=== PATIENT | female | born 1965 | race Caucasian/White ===

== ENCOUNTER 2021-01-12 09:56 | Outpatient (CLI) | payer MEDICARE, MEDICAID, SELFPAY ==
--- NOTE | ~2021-01-12 | CT_ITS ---
EXAMINATION: CT abdomen pelvis wo/w con EXAM DATE: 01/12/2021 11:06 INDICATION: Gross hematuria. TECHNIQUE: Spiral CT of the abdomen and pelvis was performed without contrast. The patient was then injected with small bolus intravenous Omnipaque 350, followed by delay of approximately 10 minutes to allow collecting system to opacify. A post contrast scan abdomen and pelvis was performed during inj ection of remaining contrast. A total of 130 cc intravenous contrast was administered. The dose-daniel th product (DLP) for this examination was 412.28 mGy-cm. The exposure was tailored according to josé ent size (auto mA exposure control), and iterative reconstruction (ASIR) was used as additional dose reduction technique. Comparison is made to prior examination from 09/07/2019. FINDINGS: There is no hydronephrosis or nephrolithiasis. There is a left renal peripelvic hemorrhagi c cyst measuring 8 mm. There is a cyst in the lower pole of the left kidney with septation measuring 2.4 cm. The kidneys enhance symmetrically. There are no suspicious renal lesions. There is duplicat ed right renal collecting system with 2 ureters confirmed to the pelvic inlet, they may merge at that point. The calyces and opacified portions of ureters are unremarkable, without filling defects or f ocal suspicious strictures. The bladder is unremarkable. The uterus is not identified and has likel y been surgically resected. Scattered small liver cysts. Splenic granulomata. Adrenal glands and pancreas unremarkable. There ar e cholecystectomy clips. There is no retroperitoneal or pelvic lymphadenopathy. There is mild scat tered arteriosclerotic disease. There is mild colonic diverticulosis. There is no adjacent inflamma tory change to suggest diverticulitis. The appendix is normal. The stomach and small bowel are unremarkable. There is expected amount of c olonic stool. No free intraperitoneal gas. The heart is normal in size. There are no pericardial or pleural effusions. The lung bases are unremarkable. There are no osteoblastic or osteolytic les ions identified. IMPRESSION: 1. Partially duplicated right renal collecting system. 2. Sigmoid diverticulosis. Reviewed, dictated and finalized at location B.
--- NOTE | ~2021-01-12 | XR_ITS ---
EXAMINATION: XR abdomen/kub 1V EXAM DATE: 01/12/2021 10:38 INDICATION: Gross hematuria. TECHNIQUE: Frontal projection of the upper abdomen, frontal projection lower abdomen/pelvis for inter pretation. Comparison is made to prior examination from 09/02/2019. FINDINGS: There is expected amount of colonic stool and gas. No small bowel dilation, nonobstructiv e bowel gas pattern. Calcifications in the pelvis are believed to be phleboliths. There is no orga nomegaly suspected. The bones are unremarkable. There are cholecystectomy clips. IMPRESSION: Unremarkable abdomen x-ray exam. Reviewed, dictated and finalized at location B.
== END 2021-01-12 09:57 | disposition home or self-care (01) ==
PROVIDERS: PCP Physician Assistant; Visit Provider Nurse Practitioner Adult Health
DX: R31.0 Gross hematuria (principal); K57.30 Diverticulosis of large intestine without perforation or abscess without bleeding; Q64.8 Other specified congenital malformations of urinary system
CPT/HCPCS: 74018; 74178; Q9967

== ENCOUNTER 2021-11-15 11:37 | Outpatient (CLI) | payer MEDICARE, MEDICAID, SELFPAY ==
[2021-11-15 12:58] LABS: Rheumatoid Factor < 12.0 IU/ML (<12)
== END 2021-11-15 11:38 | disposition home or self-care (01) ==
LOC: ANHLAB 11:44
PROVIDERS: PCP Physician Assistant; Visit Provider Physician Assistant
DX: M25.50 Pain in unspecified joint (principal)
CPT/HCPCS: 36415; 86430

== ENCOUNTER 2022-03-14 14:21 | Outpatient (CLI) | payer MEDICARE, MEDICAID, SELFPAY ==
--- NOTE | ~2022-03-14 | XR_ITS ---
XR shoulder LT min 2V 03/14/2022 16:02 Indication: Left shoulder pain Procedure: 2 views left shoulder Comparison: No prior studies for comparison. Findings: No fracture, subluxation or dislocation. No significant soft tissue abnormality. No foreign bodies. There is anatomic alignment. Impression: 1: No significant bone or joint abnormality. Reviewed, dictated and finalized at location A. Impression: 1: No significant bone or joint abnormality.
--- NOTE | ~2022-03-14 | XR_ITS ---
XR knee RT 2V 03/14/2022 16:01 Indication: Right knee pain Procedure: 3 views right knee Comparison: No prior studies for comparison. Findings: No fracture, subluxation or dislocation. There is anatomic alignment. No significant joint space narrowing. No joint effusion. No focal soft tissue abnormality. No foreign bodies. Impression: 1: No significant bone or joint abnormality. Reviewed, dictated and finalized at location A. Impression: 1: No significant bone or joint abnormality.
--- NOTE | ~2022-03-14 | XR_ITS ---
XR knee LT 2V 03/14/2022 16:01 Indication: Polyarticular joint pain Procedure: 2 views left knee Comparison: No prior studies for comparison. Findings: There is anatomic alignment. No fracture or traumatic malalignment. No significant joint ef fusion. No foreign bodies. No significant joint space narrowing. Impression: 1: No significant bone or joint abnormality. Reviewed, dictated and finalized at location A. Impression: 1: No significant bone or joint abnormality.
--- NOTE | ~2022-03-14 | XR_ITS ---
XR elbow RT 2V DATE: 03/14/2022 16:01 INDICATION: Elbow pain. TECHNIQUE: AP and lateral views COMPARISON: 11/03/2015 MRI right elbow 10/10/2015 right elbow FINDINGS: Slight dorsal olecranon process spur. No fracture or dislocation or joint effusion. IMPRESSION: Slight dorsal olecranon spur Reviewed, dictated and finalized at location A.
--- NOTE | ~2022-03-14 | XR_ITS ---
XR ankle LT 2V DATE: 03/14/2022 16:01 INDICATION: Left ankle pain TECHNIQUE: AP and lateral views COMPARISON: 04/19/2013 left ankle FINDINGS: No fracture or dislocation of the ankle or disruption of the ankle mortise. No periosteal r eaction or bone destruction. Posterior calcaneal enthesopathy. IMPRESSION: Posterior plantar calcaneal enthesopathy Reviewed, dictated and finalized at location A.
--- NOTE | ~2022-03-14 | XR_ITS ---
XR hand BI arthritis min 3V DATE: 03/14/2022 16:02 INDICATION: Bilateral hand pain TECHNIQUE: 4 views of each hand COMPARISON: None FINDINGS: There is osteoarthritic change primarily the distal interphalangeal joints, right greater t thomas left. No fracture or dislocation, periosteal reaction or bone destruction, erosive change or chondrocalcino sis. IMPRESSION: Osteoarthritic change involving primarily the distal interphalangeal joints, right greate r than left Reviewed, dictated and finalized at location A. IMPRESSION: Osteoarthritic change involving primarily the distal interphalangea l joints, right greater than left
--- NOTE | ~2022-03-14 | XR_ITS ---
XR wrist RT 2V DATE: 03/14/2022 16:01 INDICATION: Right wrist pain TECHNIQUE: AP and lateral views COMPARISON: None FINDINGS: No fracture or dislocation, periosteal reaction or bone destruction. Joint spaces are prese rved. No erosive change or chondrocalcinosis. IMPRESSION: No significant abnormality Reviewed, dictated and finalized at location A. IMPRESSION: No significant abnormality
--- NOTE | ~2022-03-14 | XR_ITS ---
XR ankle RT 2V DATE: 03/14/2022 16:01 INDICATION: Right ankle pain TECHNIQUE: AP and lateral views COMPARISON: None FINDINGS: There is mild posterior calcaneal enthesopathy. No fracture or dislocation of the ankle or disruption of the ankle mortise. No periosteal reaction or bone destruction. IMPRESSION: Mild posterior calcaneal enthesopathy Reviewed, dictated and finalized at location A.
--- NOTE | ~2022-03-14 | XR_ITS ---
XR foot LT 2V DATE: 03/14/2022 16:01 INDICATION: Left foot pain TECHNIQUE: AP and lateral views COMPARISON: None FINDINGS: Mild posterior calcaneal enthesopathy. No fracture or dislocation, periosteal reaction or bone destruction. IMPRESSION: Mild posterior calcaneal enthesopathy Reviewed, dictated and finalized at location A.
--- NOTE | ~2022-03-14 | XR_ITS ---
XR wrist LT 2V DATE: 03/14/2022 16:01 INDICATION: Left wrist pain TECHNIQUE: AP and lateral views COMPARISON: None FINDINGS: No fracture, dislocation, periosteal reaction or bone destruction, erosive change or chondr ocalcinosis. IMPRESSION: No significant abnormality Reviewed, dictated and finalized at location A. IMPRESSION: No significant abnormality
--- NOTE | ~2022-03-14 | XR_ITS ---
XR hip BI wo pelvis DATE: 03/14/2022 16:01 INDICATION: Bilateral hip pain TECHNIQUE: AP and lateral views of each hip COMPARISON: None FINDINGS: No fracture or dislocation, avascular necrosis or bone destruction. Minimal spurring of the left femoral head consistent with mild left hip osteoarthritis. The pubic symphysis and sacral iliac joints are intact. IMPRESSION: Mild left hip osteoarthritis Reviewed, dictated and finalized at location A.
--- NOTE | ~2022-03-14 | XR_ITS ---
XR shoulder RT min 2V 03/14/2022 16:01 Indication: Right shoulder pain Procedure: 2 views right shoulder Comparison: No prior studies for comparison. Findings: There is mild glenohumeral joint osteoarthritis. No fracture or traumatic malalignment. No soft tissue abnormality. No foreign body. Impression: 1: Mild glenohumeral joint osteoarthritis. Reviewed, dictated and finalized at location A. Impression: 1: Mild glenohumeral joint osteoarthritis.
--- NOTE | ~2022-03-14 | XR_ITS ---
XR elbow LT 2V DATE: 03/14/2022 16:01 INDICATION: Pain TECHNIQUE: AP and lateral views COMPARISON: None FINDINGS: Dorsal olecranon spur. No fracture or dislocation, periosteal reaction or bone destruction. No elbow joint effusion. IMPRESSION: Dorsal olecranon spur Reviewed, dictated and finalized at location A. IMPRESSION: Dorsal olecranon spur
--- NOTE | ~2022-03-14 | XR_ITS ---
XR foot RT 2V DATE: 03/14/2022 16:01 INDICATION: Pain TECHNIQUE: AP and lateral views COMPARISON: None FINDINGS: Mild posterior calcaneal enthesopathy. Osteopenia. No fracture or dislocation, periosteal reaction or bone destruction. IMPRESSION: Mild posterior calcaneal enthesopathy Reviewed, dictated and finalized at location A.
[2022-03-14 15:36] LABS: Hemoglobin 13.2 g/dL (12.0-15.0); Mean Corpuscular Hemoglobin 31.9 pg (26-34); Mean Corpuscular Volume 96.6 fl (80-100); Mean Platelet Volume 12.9 fl (7.4-10.4); Platelet Count Result 123 k/mm3 (150-375); Red Blood Count 4.14 M/mm3 (4.2-5.4)
[2022-03-14 16:16] LABS: Erythrocyte Sedimentation Rate 13 mm/hr (0-20)
[2022-03-14 18:12] LABS: Hemoglobin A1C 5.2 % (<5.7)
[2022-03-14 18:27] LABS: Alanine Aminotransferase 12 U/L (6-35); Albumin Level 4.1 g/dL (3.5-5.1); Alkaline Phosphatase 77 U/L (38-126); Anion Gap 5 mmol/L (8-16); Aspartate Amino Transferase 26 U/L (14-36); Bilirubin,Total 0.4 mg/dL (0.2-1.3); Blood Urea Nitrogen 9 mg/dL (7-17); CRP < 0.5 mg/dL (<1.0); Calcium 8.8 mg/dL (8.4-10.2); Carbon Dioxide 27 mmol/L (22-30); Chloride 105 mmol/L (98-107); Creatine Kinase 108 U/L (30-135); Estimated Glomerular Filt Rate > 60; Glucose 85 mg/dL (65-110); Magnesium 1.8 mg/dL (1.6-2.3); Potassium 3.9 mmol/L (3.4-5.0); Sodium 137 mmol/L (137-145); Uric Acid 3.2 mg/dL (2.5-7.5)
[2022-03-14 18:33] LABS: Free T4 Free Thyroxine 1.39 ng/mL (0.78-2.19); Vitamin D 25 Hydroxy 57.2 ng/mL
[2022-03-14 18:47] LABS: Thyroid Stimulating Hormone 0.467 uIU/mL (0.465-4.680)
[2022-03-17 23:24] LABS: Alpha 1 Globulin 0.3 g/dL (0.2-0.3); Alpha 2 Globulin 0.6 g/dL (0.5-0.9); Beta 1 Globulin 0.4 g/dL (0.4-0.6); Gamma Globulin 1.1 g/dL (0.8-1.7); Protein, Total 6.7 g/dL (6.1-8.1)
[2022-03-18 00:40] LABS: Total Protein/Creatinine Ratio 111 mg/g creat (21-161)
[2022-03-19 15:35] LABS: Vitamin B1 8 nmol/L (8-30)
[2022-03-20 11:50] LABS: Anti Nuclear Antibody Pattern Nuclear, Speckled; Anti Nuclear Antibody Titer 1:40 (Negative)
[2022-03-21 12:57] LABS: Vitamin B6 7.7 ng/mL (2.1-21.7)
== END 2022-03-14 14:22 | disposition home or self-care (01) ==
PROVIDERS: PCP Physician Assistant; Visit Provider Internal Medicine Rheumatology
DX: G62.9 Polyneuropathy, unspecified (principal); R53.83 Other fatigue; M19.90 Unspecified osteoarthritis, unspecified site; M79.10 Myalgia, unspecified site; R73.09 Other abnormal glucose; E55.9 Vitamin D deficiency, unspecified; E53.8 Deficiency of other specified B group vitamins; D50.9 Iron deficiency anemia, unspecified; Z79.899 Other long term (current) drug therapy; M16.12 Unilateral primary osteoarthritis, left hip; M77.32 Calcaneal spur, left foot; M77.31 Calcaneal spur, right foot; M19.041 Primary osteoarthritis, right hand; M19.042 Primary osteoarthritis, left hand; M19.011 Primary osteoarthritis, right shoulder
CPT/HCPCS: 36415; 73030; 73070; 73100; 73130; 73521; 73560; 73600; 73620; 80053; 82306; 82550; 82570; 82607; 82728; 82746; 83036; 83520; 83735; 84155; 84156; 84165; 84166; 84207; 84425; 84439; 84443; 84550; 85027; 85652; 86038; 86039; 86140; 86334; 86335

== ENCOUNTER 2022-05-08 07:59 | Outpatient (CLI) | payer MEDICARE, MEDICAID, SELFPAY ==
--- NOTE | ~2022-05-08 | US_ITS ---
EXAMINATION: US abdomen complete DATE: 05/08/2022 09:28 INDICATION: Chronic pancreatitis. Thrombocytopenia. TECHNIQUE: Multiple grayscale and Doppler ultrasound images of the abdomen were obtained. COMPARISON: CT abdomen and pelvis 01/12/2021 FINDINGS: Abdominal aorta is normal in caliber. There is mild aortic atherosclerosis. Inferior vena c keaton is normal. The visualized portions of the head, body, and tail of the pancreas are normal. There is a cyst in the liver measuring up to 1.5 cm. There is normal flow in main portal vein. The gallblad omid is absent. The common duct is normal and measures 8 mm. The spleen is normal in size. Calcificati ons in the spleen are consistent with old granulomatous disease. The kidneys are normal in size. Ther e is a 2.1 cm cyst in left kidney. IMPRESSION: 1. Normal pancreas. 2. Normal spleen size. Reviewed, dictated and finalized at location A.
== END 2022-05-08 08:00 | disposition home or self-care (01) ==
PROVIDERS: PCP Physician Assistant; Visit Provider Internal Medicine
DX: K86.1 Other chronic pancreatitis (principal); D69.6 Thrombocytopenia, unspecified
CPT/HCPCS: 76700

== ENCOUNTER 2022-07-02 14:33 | Outpatient (CLI) | payer MEDICARE, MEDICAID, SELFPAY ==
[2022-07-08 09:40] LABS: Scleroderma 70 Antibody <1.0
[2022-07-08 11:06] LABS: RNP Antibodies <1.0; SS-A <1.0; SS-B <1.0
== END 2022-07-02 14:34 | disposition home or self-care (01) ==
PROVIDERS: PCP Physician Assistant; Visit Provider Internal Medicine Rheumatology
DX: R79.89 Other specified abnormal findings of blood chemistry (principal)
CPT/HCPCS: 36415; 86225; 86235

== ENCOUNTER 2022-11-12 10:31 | Emergency (ER) | payer MEDICARE, MEDICAID, SELFPAY ==
--- NOTE | ~2022-11-12 | CT_ITS ---
EXAMINATION: CT abdomen pelvis w con DATE: 11/12/2022 11:55 INDICATION: Lower abdominal pain TECHNIQUE: Computed tomography (CT) of the abdomen and pelvis was performed with 100 CC Omnipaque 350 intravenous contrast. Automated exposure control and iterative reconstruction technique were employe d. Exam dose: 171.08 mGy-cm total exam DLP. COMPARISON: 05/08/2022 abdominal ultrasound examination 01/12/2021 CT abdomen pelvis without and with IV contrast material FINDINGS: Chronic mild discoid scarring at the base of the left lower lobe. Lung bases are clear of i nfiltrate or consolidation. Normal heart size. No pericardial or pleural effusion. Several hepatic cysts measuring up to approximately 11 mm dimension. Status post cholecystectomy. There is prominence of the common bile duct which measures up to approxi mately 11 mm diameter compared to 6 mm on 01/12/2021. The pancreatic duct is mildly dilated up to 4 mm, increased in diameter since 01/12/2021. No pancreatic mass lesion or calcification is evident. Normal splenic size. Numerous calcified splenic granulomas. Normal morphology of the adrenal glands. Duplicated right kidney. 8 mm upper pole left renal cyst. Pinpoint 5 cm lower pole left renal cyst. No urinary tract calculus or hydroureteronephrosis. The urinary bladder is unremarkable. 4.2 cm left ovarian cystic lesion; pelvic ultrasound examination is recommended. Normal caliber and minimal atherosclerotic calcification of the abdominal aorta. No intraperitoneal o r retroperitoneal or pelvic mass lesion or adenopathy or ascites. Normal appendix. No bowel obstruction or intraperitoneal free air is detected. Very small fat-containing umbilical hernia. No suspicious osteolytic or osteoblastic lesions. IMPRESSION: New 4.2 cm left ovarian cystic lesion since 01/12/2021; pelvic ultrasound correlation is r ecommended Stable hepatic cysts, left renal cysts Duplicated right kidney Status post cholecystectomy; increased caliber of the common bile duct and pancreatic duct since 2020; recommend correlation with serum bilirubin level. Consider MRCP as clinically appropriate. Normal appendix Status post cholecystectomy Status post hysterectomy Reviewed, dictated and finalized at Location A. Reviewed, dictated and finalized at location L. CONDUCTOR ENGINEER IMPRESSION: New 4.2 cm left ovarian cystic lesion since 01/12/2021; pelvic ultra sound correlation is recommended Stable hepatic cysts, left renal cysts Duplicated right kidney Status post cholecystectomy; increased caliber of the common bile duct and panc reatic duct since 01/12/2021; recommend correlation with serum bilirubin level. C onsider MRCP as clinically appropriate. Normal appendix Status post cholecystectomy Status post hysterectomy
--- NOTE | ~2022-11-12 | US_ITS ---
EXAMINATION: US pelvic complete w TV DATE: 11/12/2022 13:23 INDICATION: Ovarian cyst. TECHNIQUE: Multiple transabdominal and transvaginal sonographic images of the pelvis were obtained. COMPARISON: CT abdomen and pelvis 11/12/2022 FINDINGS: The uterus is absent. There is no free fluid in the pelvis. The right ovary is not visualized. The le ft ovary measures 4.9 x 3.4 x 4.6 cm. There is a 4.6 cm cyst in the left ovary with peripheral nodule s of tissue with internal vascular flow. There is vascular flow in the left ovary. IMPRESSION: 1. 4.6 cm cystic mass in the left ovary suspicious for neoplasm. Surgical evaluation is recommended. Reviewed, dictated and finalized at location A. UTER ASSISTANT IMPRESSION: 1. 4.6 cm cystic mass in the left ovary suspicious for neoplasm. Surgical evalu ation is recommended.
[2022-11-12 10:38] VITALS: BP 140/84; PULSE 74; RESP 18; TEMP 37.3; O2SAT 100
--- NOTE | 2022-11-12 10:49 | ECG_ITS ---
Measurements Intervals [place] Rate: 71 P: 95 DE: 160 QRS: 58 QRSD: 64 T: 77 QT: 373 QTc: 407 Interpretive Statements SINUS RHYTHM BASELINE ARTIFACT- I, II, III, AVR, AVL, AVF, V1-V6 NORMAL ECG NO PREVIOUS ECG AVAILABLE FOR COMPARISON Electronically Signed On 11-12-2022 13:10:27 AMERICAN HISTORY TEACHER by Trent Keys D.O.
[2022-11-12 10:50] VITALS: PULSE 76
[2022-11-12] MEDS: ONDANSETRON INJ 4 MG/2 ML VIAL IV PUSH (11:12)
[2022-11-12] MEDS: fentaNYL CITRATE INJ (*CRX) 100 MCG/2 ML VIAL 25 MCG IV PUSH (11:12)
[2022-11-12] MEDS: SODIUM CHLORIDE 0.9% IV 1,000 ML 999 ML IV CONT (11:13)
--- NOTE | 2022-11-12 11:20 | ED.GENADULT ---
HPI - General Adult General Chief complaint: Unspecified Stated complaint: SOB Time Seen by Provider: 11/12/22 10:37 History of Present Illness HPI narrative: Pt presents with complaint of lower abdominal pain for several days. Pt had episode of urinary incontinence yesterday and when she got to [place] she noted mucous in stool with urine. Pt had normal UA last week at urology appointment. Pt also complains of SOB on walking from parking lot to ER. Pt denies CP. Related Data Home Medications Medication Instructions Recorded Confirmed phenytoin sodium extended 100 mg 300 mg PO HS 09/07/19 11/20/21 capsule levetiracetam 500 mg tablet 500 mg PO BID 06/07/20 11/20/21 (Keppra) propranolol 10 mg tablet 10 mg PO BID 06/07/20 11/20/21 estradiol 0.01% (0.1 mg/gram) 1 g vaginal WEEKLY 11/20/21 11/20/21 vaginal cream nitrofurantoin macrocrystal 100 mg 100 mg PO Q12H 11/20/21 11/20/21 capsule Allergies Allergy/AdvReac Type Severity Reaction Status Date / Time morphine Allergy Intermediate Itching Verified 11/12/22 10:44 and encephalopathy levofloxacin AdvReac Mild Diarrhea Verified 11/12/22 10:44 Review of Systems Review of Systems: All systems reviewed & are unremarkable except as noted in HPI and below (hpi) PMFSH Past Medical History Medical History (Updated 11/12/22 @ 14:19 by Diane Brown III, DO) Anxiety Bronchitis Cataracts, bilateral Depression Diverticulitis Epilepsy Fibromyalgia GERD (gastroesophageal reflux disease) HTN (hypertension) Liver disease Pancreatitis UTI (urinary tract infection) Surgical History Surgical History History of hysterectomy History of intestinal surgery She reports cholecystecomy in 2001 and her bile ducts were nicked - her recovery was complicated by 3 months inpatient at [facility] for bile leak. She believes she also had colon resected and reanastomosed at that time - no ostomy. Hx of section Hx of cholecystectomy Hx of rotator cuff surgery lt shoulder Family History Family History Mother Family history of thyroid disease Hypertension Family history of malignant neoplasm of gastrointestinal tract Father Malignant neoplasm of prostate Family history of diabetes mellitus in first degree relative Acute myocardial infarction Other Diabetes mellitus Family history of arthritis Family history of gout Family history of heart disease in male family member before age 55 Family history of lung disease Family history of seizure disorder Social History Social History Smoking packs per day: 0.5 Smoking cigarettes per day: 10.0 Years smoked: 9 Smoking pack-years: 4.50 Smoking status: Former smoker Tobacco type: cigarettes Second hand tobacco smoke exposure: Yes Alcohol intake: never Substance use: never Substance use type: does not use Gender identity (if verbalized by the patient): Female Spiritual care concerns: No Agree to blood products: Yes Exam Const: General: cooperative, no acute distress, alert and anxious Nutritional Appearance: thin Orientation/consciousness: patient oriented x3 Limitations: no limitations Neck: Neck: normal visual inspection and full ROM Thyroid: thyroid normal Cardio: Rate: regular rate Rhythm: regular rhythm Peripheral pulses: Peripheral pulses 2+ throughout GI: Inspection: normal to inspection GI Palp: Yes abdominal tenderness (low abdomen) Auscultation: normal bowel sounds Skin: General skin exam: normal color and no rashes or lesions noted Neuro: General: patient oriented x3, no meningeal signs, no focal motor deficits and CN's II-XI intact bilaterally Speech: normal speech Extrem: General: normal to inspection, full ROM and no clubbing, cyanosis or edema Psych: Appearance: grossly nor
[2022-11-12 11:30] LABS: Basophils Percent Auto 0.6 % (0.2-1.2); Eosinophils Absolute Auto 0.1 K/mm3 (0-0.3); Eosinophils Percent Auto 1.8 % (0-4.4); Hematocrit 41.5 % (37.0-47.0); Hemoglobin 13.5 g/dL (12.0-15.0); Immature Granulocyte Absolute 0.03 K/mm3 (0.00-0.031); Immature Granulocyte Percent A 0.5 % (0-0.5); Lymphocytes Absolute Auto 1.75 K/mm3 (0.9-3.2); Lymphocytes Percent Auto 26.8 % (18.3-44.2); Mean Corpuscular HGB Conc 32.5 g/dl (32-36); Mean Corpuscular Hemoglobin 31.3 pg (26-34); Mean Corpuscular Volume 96.1 fl (80-100); Mean Platelet Volume 11.6 fl (7.4-10.4); Monocytes Absolute Auto 0.4 K/mm3 (0.1-0.6); Monocytes Percent Auto 6.1 % (2.6-8.5); Neutrophils Absolute Auto 4.2 K/mm3 (1.3-6.7); Neutrophils Percent Auto 64.2 % (45.5-73.1); Platelet Count Result 269 k/mm3 (150-375); Red Blood Count 4.32 M/mm3 (4.2-5.4); Red Cell Distribution Width 13.1 % (11.5-14.5); White Blood Count 6.5 K/mm3 (4.5-10.0)
[2022-11-12 11:34] LABS: Prothrombin Time 12.7 Seconds (11.1-14.7)
[2022-11-12 11:35] LABS: Alanine Aminotransferase 14 U/L (6-35); Albumin Level 4.4 g/dL (3.5-5.1); Alkaline Phosphatase 91 U/L (38-126); Anion Gap 8 mmol/L (8-16); Aspartate Amino Transferase 24 U/L (14-36); Bilirubin,Total 0.5 mg/dL (0.2-1.3); Blood Urea Nitrogen 6 mg/dL (7-17); Calcium 8.9 mg/dL (8.4-10.2); Carbon Dioxide 29 mmol/L (22-30); Chloride 102 mmol/L (98-107); Estimated CRCL calculation 69 ml/min; Estimated Glomerular Filt Rate > 60; Glucose 102 mg/dL (65-110); Lipase 169 U/L (23-300); Partial Thromboplastin Time 31.6 SECONDS (22.3-36.8); Potassium 3.8 mmol/L (3.4-5.0); Sodium 139 mmol/L (137-145)
[2022-11-12 11:36] LABS: Appearance Urine Turbid (Clear); Bacteria Urine 2+ /hpf; Bilirubin Urine Negative (Negative); Blood Urine 2+ (Negative); Color Urine Yellow (Yellow); Glucose Urine UA Negative (Negative); Ketones Urine Negative (Negative); Lactic Acid Reflex 1.8 mmol/L (0.7-2.0); Leukocyte Esterase Ur 3+ LEU/UL (Negative); Nitrate Urine Negative (Negative); Non Pathogenic Casts 0-2; Protein Urine 2+ mg/dL (Negative); RBC Urine 21-50 /hpf (0-2); Squamous Epithelial Cell Urine Many /hpf (Few); Urobilinogen Urine 0.2 mg/dL (<2.0); WBC Urine >100 /hpf; pH Urine 5.5 (5.0-9.0)
[2022-11-12 11:45] LABS: Add Urine Microscopic? YES
[2022-11-12 11:47] LABS: Troponin I < 0.012 ng/mL (0.000-0.034)
[2022-11-12 12:01] VITALS: BP 135/84; PULSE 68; RESP 12; O2SAT 98
[2022-11-12 13:49] VITALS: BP 126/82; PULSE 60; RESP 12; O2SAT 98
[2022-11-12 14:50] VITALS: BP 131/71; PULSE 80; RESP 12; O2SAT 98
== END 2022-11-12 14:53 | disposition home or self-care (01) ==
PROVIDERS: Emergency Provider Emergency Medicine; PCP Physician Assistant
DX: N39.0 Urinary tract infection, site not specified (principal); N83.202 Unspecified ovarian cyst, left side; G40.909 Epilepsy, unspecified, not intractable, without status epilepticus; I10 Essential (primary) hypertension; K76.9 Liver disease, unspecified; K21.9 Gastro-esophageal reflux disease without esophagitis; M79.7 Fibromyalgia; F41.9 Anxiety disorder, unspecified; F32.A Depression, unspecified; Z90.710 Acquired absence of both cervix and uterus; Z87.891 Personal history of nicotine dependence
CPT/HCPCS: 36415; 74177; 76830; 76856; 80053; 81001; 83605; 83690; 84484; 85025; 85610; 85730; 87086; 93005; 96361; 96374; 96375; 99284; J2405; J3010; J7030; Q9967

== ENCOUNTER 2022-12-03 15:59 | Outpatient (CLI) | payer MEDICARE, MEDICAID, SELFPAY ==
[2022-12-06 03:57] LABS: CA-125 3 U/mL (<35)
[2022-12-07 04:06] LABS: CA 19-9 8 U/mL (<34)
== END 2022-12-03 16:00 | disposition home or self-care (01) ==
PROVIDERS: PCP Physician Assistant; Visit Provider Obstetrics & Gynecology
DX: D39.12 Neoplasm of uncertain behavior of left ovary (principal)
CPT/HCPCS: 36415; 82378; 86301; 86304

== ENCOUNTER 2023-01-20 15:16 | Outpatient (CLI) | payer MEDICARE, MEDICAID, SELFPAY ==
--- NOTE | ~2023-01-20 | XR_ITS ---
EXAMINATION: XR abdomen/kub 1V DATE: 01/20/2023 15:40 INDICATION: Severe abdominal and rectal pain. Rectal bleeding. TECHNIQUE: A supine view of the abdomen on 2 radiographs was obtained. COMPARISON: None. FINDINGS: There are some scattered gas within nondilated loops of large and small bowel in the abdomen. Small a mount of stool in the distal colon in the pelvis. Bilateral phleboliths. Multiple calcified granuloma ta the spleen and one at the right hepatic lobe. Small suture line and cholecystectomy clips in the r ight upper quadrant. Mild lumbar levocurvature. Lung bases are clear. Heart size is normal. IMPRESSION: 1. Nonspecific nonobstructive bowel gas pattern. Reviewed, dictated and finalized at location A.
== END 2023-01-20 15:17 | disposition home or self-care (01) ==
PROVIDERS: PCP Physician Assistant; Visit Provider Nurse Practitioner
DX: K52.9 Noninfective gastroenteritis and colitis, unspecified (principal); K56.699 Other intestinal obstruction unspecified as to partial versus complete obstruction; K62.89 Other specified diseases of anus and rectum; R10.9 Unspecified abdominal pain
CPT/HCPCS: 74018

== ENCOUNTER 2023-01-22 11:54 | Outpatient (CLI) | payer MEDICARE, MEDICAID, SELFPAY ==
--- NOTE | ~2023-01-22 | CT_ITS ---
EXAMINATION: CT abdomen pelvis w con DATE: 01/22/2023 12:34 INDICATION: Low abdominal pain. Rectal pain. Vomiting. TECHNIQUE: Computed tomography (CT) of the abdomen and pelvis was performed with 100 mL Omnipaque 350 intravenous contrast. Automated exposure control and iterative reconstruction technique were employe d. The dose-length product was 175.20 mGy-cm. COMPARISON: CT abdomen and pelvis 11/12/2022, 01/12/21 FINDINGS: The visualized portions of the lung bases demonstrate mild atelectasis. No pleural effusion . The heart size is normal. No pericardial effusion. There is mild pectus excavatum. There are cysts in the liver measuring up to 11 mm. Calcifications in the spleen are consistent with old granulomatou s disease. The pancreas and adrenal glands are normal. There are cysts in the kidneys measuring up to 2.7 cm on the left. There are scattered diverticula in the colon. There is wall thickening of the si gmoid colon. There is a fistula to the thompson of the bladder and vagina. There are no dilated loops of bowel. The appendix is normal. There are no pathologically enlarged lymph nodes. There is trace pelv ic ascites. There is a 2.5 cm cyst in left ovary, likely benign. There is mild lumbar spondylosis. IMPRESSION: 1. 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 Reviewed, dictated and finalized at location A.
[2023-01-22 12:29] LABS: Estimated Glomerular Filt Rate > 60
== END 2023-01-22 11:55 | disposition home or self-care (01) ==
PROVIDERS: PCP Physician Assistant; Visit Provider Nurse Practitioner
DX: K57.32 Diverticulitis of large intestine without perforation or abscess without bleeding (principal); K52.9 Noninfective gastroenteritis and colitis, unspecified; K56.699 Other intestinal obstruction unspecified as to partial versus complete obstruction; K62.89 Other specified diseases of anus and rectum
CPT/HCPCS: 74177; Q9967

== ENCOUNTER 2023-10-03 14:14 | Outpatient (CLI) | payer MEDICARE, MEDICAID, SELFPAY | END 2023-10-03 14:15 | disposition home or self-care (01) | PROVIDERS: PCP Physician Assistant; Visit Provider Internal Medicine | DX: N39.0 Urinary tract infection, site not specified (principal); R31.9 Hematuria, unspecified | CPT/HCPCS: 87077; 87086; 87186 ==

== ENCOUNTER 2024-12-29 15:04 | Outpatient (CLI) | payer MEDICARE, MEDICAID, SELFPAY ==
--- NOTE | ~2024-12-29 | XR_ITS ---
XR abdomen/kub 1V Ordering provider: Lucy Stone APRN History: . R10.31 - Right lower quadrant pain . Comparison: January 20, 2023 FINDINGS: BOWEL: Nonobstructive bowel gas pattern. ORGANOMEGALY: None. SIGNIFICANT PATHOLOGIC CALCIFICATIONS: None. OTHER: No free air is seen under the diaphragm. IMPRESSION: NO definite ACUTE ABDOMINAL FINDINGS. Reviewed, dictated and finalized at location A.
--- OUTSIDE RECORDS SUMMARY | 2024-12-29 17:07 | XMS_ITS | CONTINUITY OF CARE DOCUMENT ---
Author Name luci verma Address Unknown Organization [facility] Address [address] [place] [address] Phone [phone] Care Team Providers Care Washing Machine Striper Name Role Phone Viraj QUINTERO, Taiwo Unavailable [phone] ANYI QUINTERO, TAD Unavailable [phone] INSURANCE PROVIDERS Payer name Policy type / Coverage type [employer]ohaib red democrat [employer] Medicaid 1 [id number] [place] [employer] Medicare [id number]
--- OUTSIDE RECORDS SUMMARY | 2024-12-29 17:07 | XMS_ITS | Clinical Summary ---
Author Organization [facility] Address [address] [place] [address] Care Team Providers Care Material Specialist Name Role Phone Keven Murrieta MD Primary Care Provider [phone] Source Comments [facility],non-owned Affiliates and Associated Physician Practices is amultiple site organization consisting of ambulatory clinics and hospital sitesin [place], [place], [place] and [place]. This disclosure is being madepursuant to the Care Everywhere program and may not contain all information available regarding this patient. Last updated 18.[facility] [employer] Allergies Active Allergy Reactions Criticality Noted Date Comments Levofloxacin Diarrhea,Urticaria,N ausea and/or Vomiting,Rash High 11/14/2017 Morphine Psychiatric,Nausea a nd/or Vomiting,Vomiting High 11/14/2017 Medications * Be aware that medications may not be up to date on this document. Alwaysverify current medications with the patient. 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 Gender Identity Not on file Sexual Orientation Not on file Last Filed Vital Signs Vital Sign Reading Time Taken Comments Blood Pressure 128/86 11/28/2017 10:57 AM CDT Pulse 52 11/28/2017 10:57 AM CDT Temperature 36.4 C (97.5 F) 11/28/2017 10:27 AM CDT Respiratory Rate 21 11/28/2017 10:57 AM CDT Oxygen Saturation 100% 11/28/2017 10:57 AM CDT Inhaled Oxygen Concentration - - Weight 47.6 kg (105 lb) 11/28/2017 8:47 AM CDT Height 167.6 cm (5' 6 ) 11/28/2017 8:47 AM CDT Body Mass Index 16.95 11/28/2017 8:47 AM CDT Plan of Treatment Health Maintenance Due Date Last Done Comments COLOGUARD (AGES 45-75) - COL ON CA SCREENING 1963 CT COLONOGRAPHY - COLON CA SCREENING 1963 FIT - COLON CA SCREENING 1963 FLEX SIG - COLON CA SCREENING 1965 MAMMOGRAM 1965 MEDICARE AWV 12 MONTHS 1963 PAP SMEAR 1963 HIV SCREENING 11/15/1978 HEPATITIS C SCREENING 11/11/1981 DTAP/TDAP/TD VACCINES (1 - Tdap) 11/15/1982 PNEUMOCOCCAL VACCINE 50+ (1 of 1 - PCV) 11/15/2013 ZOSTER VACCINE (1 of 2) 11/15/2013 COVID-19 VACCINE (2 - 2023-2 5 season) 2024 12/14/2020 DEPRESSION SCREENING 09/08/2024 INFLUENZA VACCINE (Season Ended) 2025 09/10/2019, 07/20/2013 LIPID TESTING 06/11/2028 06/11/2023 COLON MONITORING 12/11/2032 12/11/2022 COLONOSCOPY - COLON CA SCREENING 12/11/2032 12/11/2022 Colorectal Cancer Screening 12/11/2032 Respiratory Syncytial Virus (RSV) Vaccine Pt: or over 60 yrs (1 - 1-dose 75+ series) 11/15/2038 HEPATITIS B VACCINE Aged Out No longe r eligible based on patient's age to complete this topic HIB VACCINE Aged Out No longer eligi ble based on patient's age to complete this topic HPV VACCINE Aged Out No longer eligi ble based on patient's age to complete this topic MENINGOCOCCAL (Group B) VACCINE SHARED DECISION-MAKING Aged Out No longer eligible based on patient's age to complete this topic MENINGOCOCCAL GROUPS A/C/Y/W VACCINE Aged Out No longer eligible b ased on patient's age to complete this topic Procedures Procedure Name Priority Date/Time Associated Diagnosis Comments COLONOSCOPY Routine 12/11/2022 from Last 3 Months or Most Recently Relevant to Health Maintenance Results * COLONOSCOPY (12/11/2022) us Historical Provider MD SCANNING ONLY Final Res ult from Last 3 Months or Most Recently Relevant to Health Maintenance Insurance MEDICARE MEDICAID - OUT OF [facility] MANAGED MEDICARE ADV Care Teams Material Specialist Relationship Specialty Start Date End Date Keven Murrieta MD PCP - General 05/28/19
--- OUTSIDE RECORDS SUMMARY | 2024-12-29 17:07 | XMS_ITS | Clinical Summary ---
Author Organization [facility] 2 Address [address] [place] [address] Care Team Providers Care Fire Department Marine Engineer Name Role Phone Phong Perrin MD Unavailable [phone] Ted Mccormack Primary Care Provider Darron Chavarria MD Unavailable [phone] Allergies Active Allergy Reactions Criticality Noted Date Comments Levofloxacin Hives High Morphine Vomiting High Medications levETIRAcetam (KEPPRA) 750 mg tabletIndication s:Complex partial seizure evolving to generalized seizure (HCC) TAKE 1 TABLET(750 MG) BY MOUTH TWICE DAILY 180 tablet 2 Active Additional Information Patient taking differently: 750 mg oral 2 times daily, Indications: seizure prevention, Informant: Self, Reported on 04/21/[address] (CYMBALTA) 30 mg capsule Take 2 capsules (60 mg total) by mouth nightly Active traZODone (DESYREL) 50 mg tablet Take 1 tablet (50 mg total) by mouth nightly Active multivitamin capsule Take 1 capsule by mouth nightly Active diphenhydrAMINE 25 mg capsule Take 1 tablet/capsule (25 mg total) by mouth nightly Active propranoloL (INDERAL) 20 mg tablet Take 1 tablet (20 mg total) by mouth 2 (two) times a day 3 Active rOPINIRole (REQUIP) 0.5 mg tablet Take 1 tablet (0.5 mg total) by mouth nightly Active acetaminophen 500 mg capsuleIndicatio ns:Pain Take 2 capsules (1,000 mg total) by mouth every 6 (six) hours 30 tablet 3 Active Active Problems Problem Noted Date Diagnosed Date Severe malnutrition 06/11/2023 Moderate protein-calorie malnutrition 06/05/2023 Diverticulitis 06/03/2023 Dehydration 05/07/2023 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 She says it keeps her awake at night, and stressful situations also caused her to have increased tremor. She denies any dyspnea or tachycardia or palpitations. Her neurologic examination today is normal. I will increase her baseline propranolol from 10 mg daily to 10 mg b.i.d. in an effort to lessen her symptoms associated with anxiety. I will see her back in 6 months. Fibromyalgia 05/17/2016 Overview (12/12/2016): Fibromyalgia Arthralgia of multiple joints 01/22/2016 Overview (12/12/2016): Arthralgia of multiple joints Degeneration of intervertebral disc of lumbar re gion 01/22/2016 Overview (12/12/2016): Lumbar DDD Primary generalized hypertrophic osteoarthrosis 01/22/2016 Overview (12/12/2016): Primary osteoarthritis Complex partial seizure evolving to generalized seizure 12/29/2015 Overview (12/12/2016): Seizure disorder Assessment & Plan (03/19/2021 4:05 PM CDT): Patient has had additional single complex partial seizure secondary generalization since last being seen despite routine and regular use of levetiracetam 500 mg b.i.d.. I will increase her baseline levetiracetam to 750 mg b.i.d. for hopefully improved seizure prophylaxis. Patient has been counseled that under [place] guidelines she should remain without driving until filling a 6 month seizure free interval. I will see her back in the office in a year or sooner on a p.r.n. basis. Assessment & Plan (04/24/2020 2:15 PM CDT): Patient has had a single secondarily generalized seizure since being successfully transition from phenytoin to levetiracetam. She remains on levetiracetam 500 mg b.i.d. at this time. She does states she was under lot of stress during the time of her most recent seizure. As such, I will maintain her on her present dose of levetiracetam 500 mg b.i.d.. Seizure precautions have been reviewed. She has been counseled that she should not drive until filling a 6 month seizure-free interval under [place] guidelines. I will plan on seeing her back in 6 months. Gastroesophageal reflux disease 12/29/2015 Overview (12/12/2016): GERD Essential tremor 12/29/2015 Overview (12/12/2016): Essential tremor Assessment & Plan (03/19/2021 4:05 PM CDT): Patient continues on propranolol with good tolerability and efficacy for tremor suppression. Assessment & Plan (04/24/2020 2:16 PM CDT): Patient has history of tremor previously diagnosed as essential tremor. She has been using propranolol 10 mg b.i.d.. Today on examination I see no tremor. However because of her complaints of anxiety, I will increase her propranolol to 10 mg b.i.d.. This may help with any breakthrough tremor she may experience. I will plan on seeing her back in 6 months. Depression 12/29/2015 Overview (12/12/2016): Depression Seizure 02/25/2012 Immunizations Immunization Administration Dates Next Due Influenza, Quadrivalent, Spl it, Preservative Free, Intramuscular 09/10/2019 Influenza, Trivalent, IM (MDV) 07/20/2013 Influenza, Unspecified 07/20/2013 Pneumococcal Polysaccharide PPV23 07/20/2013 Tdap 07/20/2013 Surgical History Surgery Date Site/Laterality Comments CHOLECYSTECTOMY Cholecystectomy OTHER SURGICAL HISTORY hiatal hernia: fundoplication OTHER SURGICAL HISTORY bile duct repair OTHER SURGICAL HISTORY esopahgeal dilatation TOTAL ABDOMINAL HYSTERECTOMY Hysterectomy, total FISTULA REPAIR 06/04/2023 Laparoscopic sigmoid colectomy and takedown of colovaginal and colovesical fistula Medical History Medical History Date Comments Hx Other Medical gout; Comments: ANNE 12/29/2015 - Hx Other Medical epilepsy; Comme nts: ANNE 12/29/2015 - Hx Other Medical hiatal hernia; Comments: JASON 12/29/2015 - Seizures (HCC) PONV (postoperative nausea and vomiting) Postoperative delirium Delayed emergence from gener al anesthesia Severe malnutrition 06/11/2023 Family History Medical History Relation Name Comments Anesthesia problems Daughter Other Father kidney failure, COPD, CHF, seizure disorder; Anesthesia problems Mother Rectal cancer Mother Cancer, rectal ; Anesthesia problems Sister 1 Fibromyalgia Sister 1 Lupus Sister 1 Systemic lupus erythematosus; Thyroid disease Sister 1 Anesthesia problems Sister 2 Asthma Sister 2 Malig Hypertension Neg Hx Malig Hyperthermia Neg Hx Pseudochol deficiency Neg Hx Relation Name Status Comments Daughter Alive Father Mother Alive Sister 1 Alive Sister 2 Alive Social History Tobacco Use Types Packs/Day Years Used Date Smoking Tobacco: Light Smoker Cigarettes Smokeless Tobacco: Never Tobacco Cessation:Ready to Q uit: Not Asked; Counseling Given: Not Answered Comments:Smoking History Packs/day: 8 Cigarettes Alcohol Use Standard Drinks/Week Comments No 0 (1 standard drink = 0.6 oz pur e alcohol) AUDIT-C Answer Date Recorded Q1: How often do you have a drink containing alcohol? Never 04/21/2023 Q2: How many drinks containi ng alcohol do you have on a typical day when you are drinking? Patient does not drink Q3: How often do you have si x or more drinks on one occasion? Never 04/21/2023 Personal Safety Answer Date Recorded Have you ever been in or are you currently in a harmful physical or emotional relationship or is someone making you feel afraid or unsafe? Denies 06/04/2023 Comments No Sex and Gender Information Value Date Recorded Sex Assigned at Not on file Legal Sex Female 4:01 AM WEIGHT GUESSER Gender Identity Not on file Sexual Orientation Not on file Obstetrics History Para Term AB IAB SAB Ectopic Multiple Livin g Live Births 2 2 Date Outcome GA Total Labor Labor/2nd/3rd Weight Sex Type Anes PTL Tonya A1 A5 Name Clin Para Para Last Filed Vital Signs Vital Sign Reading Time Taken Comments Blood Pressure 119/83 08/15/2023 3:09 PM WEIGHT GUESSER Pulse 92 08/15/2023 3:09 PM WEIGHT GUESSER Temperature 37.1 C (98.7 F) 08/15/2023 3:09 PM WEIGHT GUESSER Respiratory Rate 16 08/15/2023 3:09 PM WEIGHT GUESSER Oxygen Saturation 97% 08/15/2023 3:09 PM WEIGHT GUESSER Inhaled Oxygen Concentration - - Weight 43.1 kg (95 lb) 08/15/2023 3:09 PM WEIGHT GUESSER Height 167.6 cm (5' 5.98 ) 08/15/2023 3:09 PM CS T Body Mass Index 15.34 08/15/2023 3:09 PM WEIGHT GUESSER Plan of Treatment Health Maintenance Due Date Last Done Comments Breast Cancer Screening-Mammogram 1965 Colon Cancer Screening-Colonoscopy 1963 Depression Screening 1963 Hepatitis B Screening 11/15/1981 Regular Well Visit/Exam 18-64 11/15/1981 Zoster Vaccine (1 of 2) 11/15/2013 Pneumococcal vaccine <65 (2 of 2 - PCV) 07/20/2014 07/20/2013 DTaP/Tdap/Td Vaccine (2 - Td or Tdap) 07/20/202308/2013 Influenza Vaccine (Season Ended) 2025 09/10/2019, 07/20/2013, 07/20/2013 Hepatitis C Screening Completed 12/29/2015 Procedures Procedure Name Priority Date/Time Associated Diagnosis Comments SERUM HEPATITIS PANEL Routine 12/29/2015 12:07 PM CDT from Last 3 Months or Most Recently Relevant to Health Maintenance Results * Serum Hepatitis panel (12/29/2015 12:07 PM CDT) HBV surface ag Non-Reacti ve Non-Reacti ve HISTORICAL RESULTS HCV ab Non-Reacti ve Non-Reacti ve HISTORICAL RESULTS HBV core ab, IgM Non-Reacti ve Non-Reacti ve HISTORICAL RESULTS HAV ab, IgM Non-Reacti ve Non-Reacti ve HISTORICAL RESULTS Serum 12/29/2015 12:0 7 PM CDT us Jose Rogers MD LAB BLOOD ORDERABLES Leanna moyer Result HISTORICAL RESULTS from Last 3 Months or Most Recently Relevant to Health Maintenance Insurance [facility] MEDICARE ADVANTAGE MEDICARE IDPA [facility] MEDICARE ADVANTAGE Advance Directives For more information, please contact: [phone] * Full Code (Latest Code Status on File) Date Activated Date Inactivated Comments 06/03/2023 10:39 AM 06/17/2023 4:25 PM * Full Code Date Activated Date Inactivated Comments 05/07/2023 2:17 PM 05/08/2023 3:43 PM Healthcare Agents on File Name Relationship Healthcare Agent [facility] Marbella Kang [facility] Health Care Agent Mike Stern [facility] Health Care Agent Care Teams Fire Department Marine Engineer Relationship Specialty Start Date End Date Ted Mccormack PA [address] [facility] [address] [place] [address] PCP - General Physician Senior It Recruiter 01/30/23 Phong Perrin MD 2 [facility] [address] [place] [address] Referring Physician Gastroenterology 05/14/19 Darron Chavarria MD [phone] [place] [address] Surgeon Colon and Rectal Surgery 07/08/23
--- OUTSIDE RECORDS SUMMARY | 2024-12-29 17:07 | XMS_ITS | Referral Summary ---
Author Organization [facility] 2 Address [address] [place] [address] Care Team Providers Care Channel Sales Manager Name Role Phone Phong Perrin MD Unavailable [phone] Ted Mccormack Primary Care Provider Darron Chavarria MD Unavailable [phone] Allergies Active Allergy Reactions Criticality Noted Date [...] prophylaxis. Patient has been counseled that under [place] guidelines she should remain without driving until [...] filling a 6 month seizure-free interval under [place] guidelines. I will plan on seeing her [...] 07/20/2013 Pneumococcal Polysaccharide PPV23 07/20/2013 Tdap 07/20/2013 Social History Tobacco Use Types Packs/Day Years [...] on file Legal Sex Female 4:01 AM GOAT HERDER Gender Identity Not on file Sexual Orientation Not on file Last Filed Vital Signs Vital Sign Reading Time Taken Comments Blood Pressure 119/83 08/15/2023 3:09 PM GOAT HERDER Pulse 92 08/15/2023 3:09 PM GOAT HERDER Temperature 37.1 C (98.7 F) 08/15/2023 3:09 PM GOAT HERDER Respiratory Rate 16 08/15/2023 3:09 PM GOAT HERDER Oxygen Saturation 97% 08/15/2023 3:09 PM GOAT HERDER Inhaled Oxygen Concentration - - Weight 43.1 kg (95 lb) 08/15/2023 3:09 PM GOAT HERDER Height 167.6 cm (5' 5.98 ) 08/15/2023 3:09 PM CS T Body Mass Index 15.34 08/15/2023 3:09 PM GOAT HERDER Plan of Treatment Not on file Procedures Procedure Name Priority Date/Time Associated Diagnosis [...] Most Recently Relevant to Health Maintenance Insurance [facility] MEDICARE ADVANTAGE MEDICARE IDPA [facility] MEDICARE ADVANTAGE Advance Directives For more information, please contact: [phone] * Full Code (Latest Code Status on File) Date Activated Date Inactivated Comments 06/03/2023 10:39 AM 06/17/2023 4:25 PM * Full Code Date Activated Date Inactivated Comments 05/07/2023 2:17 PM 05/08/2023 3:43 PM Healthcare Agents on File Name Relationship Healthcare Agent Yunielhi val Communication Jaz Kang Sister Health Care Agent Mike Mirza [employer] Alternate Health Care Agent Care Teams Channel Sales Manager Relationship Specialty Start Date End Date Ted Mccormack PA [address] [facility] [address] [place] [address] PCP - General Physician Shells Inspector 01/30/23 Phong Perrin MD 2 [facility] [address] [place] [address] Referring Physician Gastroenterology 05/14/19 Darron Chavarria MD [phone] [place] [address] Surgeon Colon and Rectal Surgery 07/08/23
--- OUTSIDE RECORDS SUMMARY | 2024-12-29 17:07 | XMS_ITS | Clinical Summary ---
Author Organization [facility] Address [facility] [place] [address] Care Team Providers Care Brick Maker Name Role Phone Ted Mccormack PA-C Primary Care Provider [phone] Social History Tobacco Use Types Packs/Day Years Used Date Smoking Tobacco: Never Assessed Comments Unknown Sex and Gender Information Value Date Recorded Sex Assigned at Not on file Legal Sex Female 1:42 PM CDT Gender Identity Not on file Sexual Orientation Not on file Plan of Treatment Health Maintenance Due Date Last Done Comments Cervical Cancer Screening Pa p Smear (Age 30 to 64) Every 3 Years 1965 Colorectal Cancer Screening Colonoscopy (10 Years) 1963 Annual Physical 11/15/1966 Hepatitis C 11/15/1981 Cervical Cancer Screening Pa p with HPV Testing (Age 30 to 64) Every 5 Years 11/15/1993 Cervical Cancer Screening with HPV 11/15/1993 Mammogram Screening 2003 Zoster Vaccines (1 of 2) 11/15/2013 Pneumococcal Vaccine: 50+ Ye ars (2 of 2 - PCV) 07/20/2014 07/20/2013 DTaP, Tdap and Td Vaccines ( 2 - Td or Tdap) 07/20/2023 07/20/2013 COVID-19 Vaccine (2 - 2023-2 5 season) 2024 12/14/2020 RSV Immunization or 60+ Years (1 - 1-dose 75+ series) 11/15/2038 Meningococcal B Vaccine Aged Out No l onger eligible based on patient's age to complete this topic Meningococcal Vaccine Aged Out No kaz ahmet eligible based on patient's age to complete this topic RSV Immunizations Under 20 Months Aged Out No longer eligible based on patient's age to complete this topic Insurance [facility] MEDICAID Care Teams Brick Maker Relationship Specialty Start Date End Date Ted Mccormack PA-C [address] [facility] [address] [place], [place] [id number] PCP - General PHYSICIAN SPEECH AND DRAMA TEACHER 05/10/22
--- OUTSIDE RECORDS SUMMARY | 2024-12-29 17:07 | XMS_ITS | Clinical Summary ---
Author Organization [facility] Address [address], [address] [address] Phone Care Team Providers Care Dance Hall Host/Hostess Name Role Phone Ted Mccormack Primary Care Provider Giles Bishop MD Unavailable [phone] Allergies Active Allergy Reactions Criticality Noted Date Comments Levofloxacin Hives,Diarrhea,Rash Medium Morphine Sulfate Nausea,Hallucinations Medium Medications gabapentin (NEURONTIN) 300 MG Capsule 04/24/2022 Active levETIRAcetam (KEPPRA) 750 MG Tablet 03/25/2022 Active Nicotine 21-14-7 MG/24HR Kit Active propranolol (INDERAL) 20 MG Tablet Take 20 mg by mouth 2 times daily. 08/29/2022 Active DULoxetine (CYMBALTA) [address] Lemus 09/15/2022 Active Active Problems Problem Noted Date Diagnosed Date Generalized anxiety disorder 04/24/2020 Overview (05/17/2022): Last Assessment & Plan: Patient cites feelings of anxiousness which do [...] back in 6 months. Fibromyalgia 05/17/2016 Overview (05/17/2022): Fibromyalgia Primary generalized hypertrophic osteoarthrosis 01/22/2016 Overview (05/17/2022): Primary osteoarthritis Degeneration of intervertebral disc of lumbar re gion 01/22/2016 Overview (05/17/2022): Lumbar DDD Arthralgia of multiple unspecified joints 2015 Overview (05/17/2022): Arthralgia of multiple joints Gastroesophageal reflux disease 12/29/2015 Overview (05/17/2022): GERD Essential tremor 12/29/2015 Overview (05/17/2022): Essential tremor Last Assessment & Plan: Patient continues on propranolol with good tolerability and efficacy for tremor suppression. Depression 12/29/2015 Overview (05/17/2022): Depression Complex partial seizure evolving to generalized seizure 12/29/2015 Overview (05/17/2022): Seizure disorder Last Assessment & Plan: Patient has had additional single complex partial seizure secondary generalization since last being seen despite routine and regular use of levetiracetam 500 mg b.i.d.. I will increase her baseline levetiracetam to 750 mg b.i.d. for hopefully improved seizure prophylaxis. Patient has been counseled that under [place] guidelines she should remain without driving until filling a 6 month seizure free interval. I will see her back in the office in a year or sooner on a p.r.n. basis. Chronic pancreatitis Abdominal pain Overview (08/17/2015): RLQ Diarrhea Nausea with vomiting Immunizations Immunization Administration Dates Next Due Influenza Vaccine, Quadrivalent, PF 09/10/2019 Influenza, Seasonal, Injectable, Undefined 07/20 Pneumococcal Vaccine Adult - 23 Valent 3 TDAP Vaccine 07/20/2013 Family History Medical History Relation Name Comments Diabetes Brother Chronic Obstructive Pulmonary Disease Father Congestive Heart Failure Father Diabetes Father Prostate Cancer Father Cancer Maternal Aunt Cancer Maternal Grandmother breast Cancer Mother anal Hypertension Mother Cancer Other pt unsure of this anal Crohn's Disease Other pt unsure of this Diabetes Other pt unsure of this Kidney Disease Other pt unsure of this Liver Cancer Other pt unsure of this Prostate Cancer Other pt unsure of this Relation Name Status Comments Brother Father Maternal Aunt Maternal Grandmother Mother Alive Other pt unsure of this Social History Tobacco Use Types Packs/Day Years Used Date Smoking Tobacco: Some Days Cigarettes Smokeless Tobacco: Never Tobacco Cessation:Ready to Q uit: Not Asked; Counseling Given: Not Answered Alcohol Use Standard Drinks/Week Comments No 0 (1 standard drink = 0.6 oz pur e alcohol) PHQ-2 Answer Date Recorded Total Score - Questions 1-9 7 05/09 Comments No Sex and Gender Information Value Date Recorded Sex Assigned at Not on file Legal Sex Female 7:30 PM CDT Gender Identity Not on file Sexual Orientation Not on file 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 Not on file Not on arnel e Last Filed Vital Signs Vital Sign Reading Time Taken Comments Blood Pressure 100/68 09/16/2022 1:15 PM SEED CLEANING MACHINE OPERATOR Pulse 91 09/16/2022 1:15 PM SEED CLEANING MACHINE OPERATOR Temperature 37.4 C (99.3 F) 09/16/2022 1:15 PM SEED CLEANING MACHINE OPERATOR Respiratory Rate 18 09/16/2022 1:15 PM SEED CLEANING MACHINE OPERATOR Oxygen Saturation 98% 09/16/2022 1:15 PM SEED CLEANING MACHINE OPERATOR Inhaled Oxygen Concentration - - Weight 46.7 kg (103 lb) 09/16/2022 1:15 PM SEED CLEANING MACHINE OPERATOR Height 167.6 cm (5' 6 ) 09/16/2022 1:15 PM SEED CLEANING MACHINE OPERATOR Body Mass Index 16.62 09/16/2022 1:15 PM SEED CLEANING MACHINE OPERATOR Plan of Treatment Health Maintenance Due Date Last Done Comments Mammogram 1965 Cologuard 11/15/2013 Immunochemical Fecal Occult Blood 11/15/2013 Zoster Immunization (1 of 2) 11/15/2013 Pneumococcal Immunization (5 0+ years) (2 of 2 - PCV) 07/20/2014 07/20/2013 Influenza Immunization (#1) 05/09/202411/2019, 07/20/2013 SARS-COV-2 Immunization (2 - season) 2024 12/14/2020 Colonoscopy 06/30/2027 06/30/2017, 03/23/2012 Colorectal Cancer Screening 06/30/2027 Respiratory Syncytial Virus (RSV) Immunization (Adult) (1 - 1-dose 75+ series) 11/15/2038 06/30/2017, 03/23/2012 DTaP/Tdap/Td Immunization Discontinued 07/20/2013 Pneumococcal Immunization Combined Discontinued 07/20/2013 Hepatitis C Virus (HCV) Screening Completed 04/29/2022 Hepatitis B Immunization Aged Out No longer eligible based on patient's age to complete this topic Meningococcal Immunization (ACWY) Aged Out No longer eligible based on patient's age to complete this topic Rotavirus Immunization Aged Out No lo nger eligible based on patient's age to complete this topic Procedures Procedure Name Priority Date/Time Associated Diagnosis Comments HEPATITIS C ANTIBODY Routine 04/29/2022 9:56 AM CDT Other chronic pancreatitis (HCC) Thrombocytopenia (HCC) HM COLONOSCOPY Routine 03/23/2012 from Last 3 Months or Most Recently Relevant to Health Maintenance Results * HEPATITIS C ANTIBODY (04/29/2022 9:56 AM CDT) HEPATITIS C VIRUS AB SIGNAL CUTOFF <0.1 0.0 - 0.9 S/CO RATIO [facility] HEPATITIS C VIRUS AB COMMENT [facility] Comment: NEGATIVE NOT INFECTED WITH HCV, UNLESS RECENT INFECTION IS SUSPECTED OR OTHER EVIDENCE EXISTS TO INDICATE HCV INFECTION. Blood 04/29/2022 9:56 AM CDT Narrative [facility] - 04/30/2022 10:08 AM CDT TESTING PERFORMED AT: [] [address], [place], [address], PHONE: [phone], VACUUM METALIZING SUPERVISOR: JOHANA TOPETE, PHD Release to patient->Immediate us Giles Bishop MD CHEMISTRY ORDERABLES Final Result [facility] * HM COLONOSCOPY (03/23/2012) us Keven Murrieta MD PROCEDURE/MINOR SURGICAL O RDERABLES Final Result from Last 3 Months or Most Recently Relevant to Health Maintenance Insurance [place] [employer] Care Teams Dance Hall Host/Hostess Relationship Specialty Start Date End Date Ted Mccormack PAC [address] [facility] [address] [facility] [address] [place] [address] PCP - General Physician Review Specialist 05/13/19 Giles Bishop MD [address] [place] [address] Consulting Physician Oncology 04/11/22
== END 2024-12-29 15:05 | disposition home or self-care (01) ==
PROVIDERS: PCP Physician Assistant; Visit Provider Nurse Practitioner
DX: R10.31 Right lower quadrant pain (principal); R10.32 Left lower quadrant pain
CPT/HCPCS: 74018

== ENCOUNTER 2024-12-31 12:14 | Outpatient (CLI) | payer MEDICARE, MEDICAID, SELFPAY ==
--- NOTE | ~2024-12-31 | MR_ITS ---
MRI of the lumbar spine Clinical History: Incontinent Technique: Axial T2-weighted images, and sagittal T1-weighted, T2-weighted, and T2 fat-sat images wer e acquired. Findings: There is no fracture or subluxation of the lumbar spine. Vertebral bodies maintain normal h eight. No bone marrow signal abnormality seen. At L1-L2, L2-L3, L3-L4, L4-L5, there is no significant disc bulges. There are moderate facet joint de generative changes at these levels. No spinal canal stenosis or neural foraminal narrowing at these l evels. L5-S1, there is minimal disc bulge with mild facet arthropathy. No spinal canal stenosis or definite neural foraminal narrowing. There are prominent Tarlov cysts at the sacral region, especially the S1 level no extending superiorl y to the L5-S1 region. Paravertebral soft tissues are otherwise unremarkable. Impression: Prominent Tarlov cysts about the S1 level extending superior to the L5-S1 region. Otherwise minimal degenerative changes, as above. Reviewed, dictated and finalized at location . Impression: Prominent Tarlov cysts about the S1 level extending superior to the L5-S1 regio n. Otherwise minimal degenerative changes, as above.
== END 2024-12-31 12:15 | disposition home or self-care (01) ==
LOC: MICIMG 12:15
PROVIDERS: PCP Physician Assistant; Visit Provider Nurse Practitioner
DX: K57.20 Diverticulitis of large intestine with perforation and abscess without bleeding (principal)
CPT/HCPCS: 72148

== ENCOUNTER 2025-01-18 09:48 | Outpatient (CLI) | payer MEDICARE, MEDICAID, SELFPAY ==
--- NOTE | ~2025-01-18 | MR_ITS ---
EXAMINATION: MR pelvis wo/w con DATE: 01/18/2025 10:53 INDICATION: Fecal incontinence. Peroneal numbness. Abdominal pain. TECHNIQUE: Magnetic resonance imaging (MRI) of the pelvis was performed without and with 9 mL Multiha nce intravenous contrast. Sequences included axial and coronal T2-weighted SS FSE, axial and coronal FIESTA, axial and coronal FS FIESTA, axial T1-weighted STIR, axial dual-echo T1-weighted FSPGR and ax ial T1 weighted LAVA. Postcontrast sequences included a time course axial T1-weighted LAVA and coron al T1-weighted LAVA. COMPARISON: CT dated 01/22/2023 FINDINGS: Bone alignment is normal with normal marrow signal throughout. No reactive edema, fracture or patholo gic marrow replacing process. There are lumbosacral Tarlov cysts. Decompressed bladder is unremarkabl e. The uterus is not identified and has likely been surgically resected. Visualized portions of bowel s are unremarkable. No obstruction. No abscess or free intraperitoneal fluid in the pelvis or visuali zed lower abdomen. No pathologically enlarged pelvic or inguinal lymphadenopathy. IMPRESSION: 1. Status post hysterectomy and lumbosacral Tarlov cyst. Otherwise unremarkable pelvic MRI. Reviewed, dictated and finalized at location A.
== END 2025-01-18 09:49 | disposition home or self-care (01) ==
PROVIDERS: PCP Physician Assistant; Visit Provider Nurse Practitioner
DX: K62.89 Other specified diseases of anus and rectum (principal); R10.31 Right lower quadrant pain; R10.32 Left lower quadrant pain; R15.9 Full incontinence of feces; R20.0 Anesthesia of skin
CPT/HCPCS: 72197; A9577

== ENCOUNTER 2025-05-06 07:01 | Outpatient (CLI) | payer MEDICARE, MEDICAID, SELFPAY ==
[2025-05-06 07:39] LABS: Hematocrit 43.8 % (37.0-47.0); Hemoglobin 14.0 g/dL (12.0-15.0); Immature Granulocyte Percent A 0.4 % (0-0.5); Immature Platelet Fraction Pct 15.4 % (0.9-11.2); Lymphocytes Absolute Auto 1.34 K/mm3 (0.9-3.2); Mean Corpuscular HGB Conc 32.0 g/dl (32-36); Mean Corpuscular Hemoglobin 32.0 pg (26-34); Mean Corpuscular Volume 100.2 fl (80-100); Nucleated Red Blood Cells Absolute Auto 0.000 K/mm3 (0.0-0.012); Nucleated Red Blood Cells Perc 0.0 % (0.0-0.2); Platelet Count Result 109 k/mm3 (150-375); Red Blood Count 4.37 M/mm3 (4.2-5.4); White Blood Count 5.4 K/mm3 (4.5-10.0)
[2025-05-06 07:55] LABS: Alanine Aminotransferase 24 U/L (6-35); Albumin Level 4.2 g/dL (3.5-5.1); Alkaline Phosphatase 74 U/L (38-126); Anion Gap 7 mmol/L (4-12); Aspartate Amino Transferase 38 U/L (14-36); Bilirubin,Total 0.4 mg/dL (0.2-1.3); Blood Urea Nitrogen 20 mg/dL (7-17); Calcium 9.1 mg/dL (8.4-10.2); Carbon Dioxide 26 mmol/L (22-30); Chloride 106 mmol/L (98-107); Estimated Glomerular Filt Rate > 60; Glucose 95 mg/dL (65-110); Potassium 4.5 mmol/L (3.4-5.0); Sodium 139 mmol/L (137-145); Total Protein 7.3 g/dL (6.3-8.2)
[2025-05-06 08:31] LABS: Thyroid Stimulating Hormone 1.540 uIU/mL (0.465-4.680)
[2025-05-06 11:11] LABS: Glucose 1 Hour 231 mg/dL
== END 2025-05-06 07:02 | disposition home or self-care (01) ==
PROVIDERS: PCP Internal Medicine; Visit Provider Internal Medicine
DX: G40.909 Epilepsy, unspecified, not intractable, without status epilepticus (principal); R63.4 Abnormal weight loss; I10 Essential (primary) hypertension; E16.2 Hypoglycemia, unspecified
CPT/HCPCS: 36415; 80053; 82948; 82951; 82952; 84443; 85025; 85055

== ENCOUNTER 2025-05-06 10:37 | Emergency (ER) | payer MEDICARE, MEDICAID, SELFPAY ==
[2025-05-06] VITALS (10 sets, daily range): BP systolic 101–159; BP diastolic 80–95; PULSE 58–87; RESP 10–28; TEMP 36.4–36.6; O2SAT 100
--- OUTSIDE RECORDS SUMMARY | 2025-05-06 10:41 | XMS_ITS | Clinical Summary ---
Author Organization [facility] Address [address] [place] [address] Care Team Providers Care Tie Bucker Name Role Phone Keven Murrieta MD Primary Care Provider [phone] Source Comments [facility],non-owned Affiliates and Associated Physician Practices is amultiple site organization consisting of ambulatory clinics and hospital sitesin [place] and [place]. This disclosure is being madepursuant to the Care Everywhere program and may not contain all information available regarding this patient. Last updated 18.[facility] [employer] Allergies Active Allergy Reactions Criticality Noted Date Comments Levofloxacin Diarrhea,Urticaria,N ausea and/or Vomiting,Rash High 11/14/2017 Morphine Psychiatric,Nausea a nd/or Vomiting,Vomiting High 11/14/2017 Medications * Be aware that medications may not be up to date on this document. Alwaysverify current medications with the patient. 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 Gender Identity Not on file Sexual Orientation [...] 8:47 AM CDT Height 167.6 cm (5' 6) 11/28/2017 8:47 AM CDT Body Mass Index 16.95 11/28/2017 8:47 AM CDT Plan of Treatment Health Maintenance Due Date Last Done Comments COLOGUARD (AGES 45-75) - COL ON CA SCREENING 1965 CT COLONOGRAPHY - COLON CA SCREENING 1965 FIT - COLON CA SCREENING 1965 FLEX SIG - COLON CA SCREENING 1965 MAMMOGRAM 1965 HIV SCREENING 11/15/1978 HEPATITIS C SCREENING 11/11/1981 DTAP/TDAP/TD VACCINES (1 - Tdap) 11/15/1982 PAP SMEAR 11/15/1984 PNEUMOCOCCAL VACCINE 50+ (1 of 1 - PCV) 11/15/2013 ZOSTER VACCINE (1 of 2) 11/15/2013 COVID-19 VACCINE (2 - 2023-2 5 season) 2024 12/14/2020 DEPRESSION SCREENING 09/08/2024 MEDICARE AWV CALENDAR YEAR 2024 INFLUENZA VACCINE (#1) 2025 0, 07/20/2013 LIPID TESTING 06/11/2028 06/11/2023 COLON MONITORING [...] Maintenance Insurance MEDICARE MEDICAID - OUT OF [facility] MANAGED MEDICARE ADV Care Teams Tie Bucker Relationship Specialty Start Date End Date Keven Murrieta MD PCP - General 05/28/19
--- OUTSIDE RECORDS SUMMARY | 2025-05-06 10:41 | XMS_ITS | Clinical Summary ---
Author Organization [facility] Address [address], [address] [address] Phone Care Team Providers Care Mixer Diamond Powder Name Role Phone Ted Mccormack Primary Care Provider Giles Bishop MD Unavailable [phone] Allergies Active Allergy Reactions Criticality Noted Date [...] prophylaxis. 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 on arnel e Last Filed Vital Signs Vital Sign Reading Time Taken Comments Blood Pressure 100/68 09/16/2022 1:15 PM BUILDING REPAIR MAINTENANCE SUPERVISOR Pulse 91 09/16/2022 1:15 PM BUILDING REPAIR MAINTENANCE SUPERVISOR Temperature 37.4 C (99.3 F) 09/16/2022 1:15 PM BUILDING REPAIR MAINTENANCE SUPERVISOR Respiratory Rate 18 09/16/2022 1:15 PM BUILDING REPAIR MAINTENANCE SUPERVISOR Oxygen Saturation 98% 09/16/2022 1:15 PM BUILDING REPAIR MAINTENANCE SUPERVISOR Inhaled Oxygen Concentration - - Weight 46.7 kg (103 lb) 09/16/2022 1:15 PM BUILDING REPAIR MAINTENANCE SUPERVISOR Height 167.6 cm (5' 6) 09/16/2022 1:15 PM BUILDING REPAIR MAINTENANCE SUPERVISOR Body Mass Index 16.62 09/16/2022 1:15 PM BUILDING REPAIR MAINTENANCE SUPERVISOR Plan of Treatment Health Maintenance Due Date Last Done Comments Mammogram 1965 Cologuard 11/15/2008 Immunochemical Fecal Occult Blood 11/15/2008 Zoster Immunization (1 of 2) 11/15/2013 Pneumococcal Immunization (5 0+ years) (2 of 2 - PCV) 07/20/2014 07/20/2013 SARS-COV-2 Immunization (2 - season) 2024 12/14/2020 Influenza Immunization (#1) 05/09/202511/2019, 07/20/2013 Colonoscopy 06/30/2027 06/30/2017, 03/23/2012 Colorectal Cancer Screening 06/30/2027 Respiratory Syncytial Virus (RSV) Immunization (Adult) (1 - 1-dose 75+ series) 11/15/2038 DTaP/Tdap/Td Immunization Discontinued 07/20/2013 Pneumococcal Immunization Combined Discontinued 07/20/2013 Hepatitis C Virus (HCV) Screening Completed 04/29/2022 Hepatitis B Immunization Aged Out No longer eligible based on patient's age to complete this topic Human Papillomavirus (HPV) Immunization Aged Out No longer eligible based [...] CUTOFF <0.1 0.0 - 0.9 S/CO RATIO [facility] HEPATITIS C VIRUS AB COMMENT [facility] Comment: NEGATIVE NOT INFECTED WITH HCV, UNLESS RECENT INFECTION IS SUSPECTED OR OTHER EVIDENCE EXISTS TO INDICATE HCV INFECTION. Blood 04/29/2022 9:56 AM CDT [facility]arrative [facility] - 04/30/2022 10:08 AM CDT TESTING PERFORMED AT: [] [address], [address], PHONE: [phone], CERTIFIED INDUSTRIAL HYGIENIST: JOHANA TOPETE, PHD Release to patient->Immediate us Giles Bishop MD CHEMISTRY ORDERABLES Final Result [facility] * HM COLONOSCOPY (03/23/2012) us Keven Murrieta MD PROCEDURE/MINOR SURGICAL O RDERABLES Final Result from Last 3 Months or Most Recently Relevant to Health Maintenance Insurance MEDICARE MED[place]ID [place] MED[place]ID [place] MEDICARE C [employer] Care Teams Mixer Diamond Powder Relationship Specialty Start Date End Date Ted Mccormack PAC [address] [facility] [address] [place] [address] PCP - General Physician Communications Manager 05/13/19 Giles Bishop MD [address] [place] [phone] Consulting Physician Oncology 04/11/22
--- OUTSIDE RECORDS SUMMARY | 2025-05-06 10:41 | XMS_ITS | Clinical Summary ---
Author Organization [facility] 2 Address [address] [facility] [place] [address] Care Team Providers Care Bed Spring Maker Name Role Phone Phong Perrin MD Unavailable [phone] Ted Mccormack Primary Care Provider Darron Chavarria MD Unavailable [phone] Allergies Active Allergy Reactions Criticality Noted Date Comments Levofloxacin Hives High Morphine Vomiting High Medications DULoxetine DR (CYMBALTA) 30 mg capsule Take 2 capsules (60 mg total) by mouth nightly Active traZODone (DESYREL) 50 mg tablet Take 1 tablet (50 mg total) by mouth nightly Active multivitamin capsule Take 1 capsule by mouth nightly Active diphenhydrAMINE 25 mg capsule Take 1 tablet/capsul e (25 mg total) by mouth nightly Active propranoloL (INDERAL) 20 mg tablet Take 1 tablet (20 mg total) by mouth 2 (two) times a day 03/01/2023 Active Accu-Chek Guide test strips strip as directed 01/24/2025 Active Accu-Chek Guide Me Glucose Mtr misc as directed 01/24/2025 Active Accu-Chek Softclix Lancets lancets as directed 01/24/2025 A ctive Active Problems Problem Noted Date Diagnosed Date [...] Patient has been counseled that under [place] guidelines she should remain without driving until [...] a 6 month seizure-free interval under [place] guidelines. I will plan on seeing her [...] Depression 12/29/2015 Overview (12/12/2016): Depression Seizure 02/25/2012 Encounters Date Type Department Care Team Description 02/17/2025 12:30 PM CDT Office Visit [facility] [address] [facility] Advanced Medicine 6th [place] [address] [place] [address] Tracy Vitale, FELI Full incontinence of feces 02/17/2025 12:06 PM CDT - 02/17/2025 11:59 PM CDT Hospital Encounter [facility]) [address] [place] [address] Low back pain, non-specific Discharge Disposition: Discharge to home or self care 02/04/2025 10:35 AM CDT - 02/04/2025 11:59 PM CDT Hospital Encounter [facility] ([facility]) [address] [place] [address] Discharge Disposition: Discharge to home or self care 02/04/2025 10:22 AM CDT - 02/04/2025 11:59 PM CDT Hospital Encounter [facility] ([facility]) [address] [place] [address] Discharge Disposition: Discharge to home or self care 02/04/2025 Orders Only [facility] Medicine Neurosurgery [address] [facility] [address] [place] [address] Tracy Vitale NP Low back pain, non-specific (Primary Dx) from Last 3 Months Immunizations Immunization Administration Dates Next Due Influenza, [...] from gener al anesthesia Severe malnutrition 06/11/2023 Anxiety Depression Diverticulitis of colon Osteoporosis Family History Medical History Relation Name Comments [...] to Q uit: Not Asked; Counseling Given: Yes Comments:Smoking History Packs/day: 8 Cigarettes Alcohol Use Standard Drinks/Week Comments No 0 (1 standard drink = 0.6 oz pur e alcohol) AUDIT-C Answer Date Recorded Q1: How often do you have a drink containing alcohol? Never 02/17/2025 Q2: How many drinks containi ng alcohol do you have on a typical day when you are drinking? Patient does not drink Q3: How often do you have si x or more drinks on one occasion? Never 02/17/2025 Personal Safety Answer Date Recorded Have you ever been in or are you currently in a harmful physical or emotional relationship or is someone making you feel afraid or unsafe? 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 Gender Identity Not on file Sexual Orientation Not on file Obstetrics History Para Term AB IAB SAB Ectopic Multiple Livin g Live Births 2 2 Date Outcome GA Total Labor Labor/2nd/3rd Weight Sex Type Anes PTL Tonya A1 A5 Name Clin Para Para Last Filed Vital Signs Vital Sign Reading Time Taken Comments Blood Pressure 135/76 02/17/2025 12:36 PM CDT Pulse 77 02/17/2025 12:36 PM CDT Temperature 37.1 C (98.7 F) 08/15/2023 3:09 PM [employer]ETLAND[employer]ER Respiratory Rate 16 08/15/2023 3:09 PM [employer]ORER Oxygen Saturation 97% 08/15/2023 3:09 PM [employer]ER Inhaled Oxygen Concentration - - Weight 43.3 kg (95 lb 6.4 oz) 02/17/2025 12:36 P M CDT Height 167.6 cm (5' 6) 02/17/2025 12:36 PM CDT Body Mass Index 15.4 02/17/2025 12:36 PM CDT Plan of Treatment Health Maintenance Due Date Last Done Comments Breast Cancer Screening-Mammogram 1965 Colon Cancer Screening-Colonoscopy 1965 Depression Screening 1965 Hepatitis B Screening 11/15/1981 Regular Well Visit/Exam 18-64 11/15/1981 Zoster Vaccine (1 of 2) 11/15/2013 Pneumococcal vaccine <65 (2 of 2 - PCV) 07/20/2014 07/20/2013 DTaP/Tdap/Td Vaccine (2 - Td or Tdap) 07/20/202308/2013 Influenza Vaccine (#1) 2025 0, 07/20/2013, 07/20/2013 Hepatitis C Screening Completed 12/29/2015 Procedures Procedure Name Priority Date/Time Associated Diagnosis Comments XR SCOLIOSIS 6 OR MORE VIEWS Schedule Routine, Read Routine (OP Routine) 02/17/2025 12:23 PM CDT Low back pain, non-specific NEURO MR OUTSIDE REFERENCE Routine 02/04/2025 10:35 AM CDT MR BODY OUTSIDE REFERENCE Routine 02/04/2025 10:22 AM CDT SERUM HEPATITIS PANEL Routine 12/29/2015 12:07 PM CDT from Last 3 Months or Most Recently Relevant to Health Maintenance Results * XR Scoliosis 6 or More Views (02/17/2025 12:23 PM CDT) Anatomical Region Laterality Modality Spine N/A Computed Radiogr aphy 02/17/2025 1:32 PM CDT Impressions 02/17/2025 1:32 PM CDT 1. Mild lumbar levoscoliosis and minimal right superior pelvic obliquity without significant truncal imbalance. 2. Mild multilevel degenerative disc disease and facet arthropathy. Electronically signed by: Flakito Meeks 02/17/2025 1:32 PM CDT EXAMINATION: XR SCOLIOSIS 6 OR MORE VIEWS HISTORY: lumbar pain FINDINGS: Comparison is made to 01/20/2023 abdominal radiograph. There is mild lumbar levoscoliosis and mild thoracic dextrocurvature. No significant coronal truncal imbalance. Minimal right superior pelvic obliquity. No significant sagittal truncal imbalance. The vertebral body heights are maintained. Mild multilevel degenerative disc disease, worst and mild C6-C7. Mild lower lumbar facet arthropathy. No spondylolisthesis and no dynamic instability. Procedure Note Jm Parra, DO - 02/17/2025 EXAMINATION: XR SCOLIOSIS 6 OR MORE VIEWS HISTORY: lumbar pain FINDINGS: Comparison is made to 01/20/2023 abdominal radiograph. There is mild lumbar levoscoliosis and mild thoracic dextrocurvature. No significant coronal truncal imbalance. Minimal right superior pelvic obliquity. No significant sagittal truncal imbalance. The vertebral body heights are maintained. Mild multilevel degenerative disc disease, worst and mild C6-C7. Mild lower lumbar facet arthropathy. No spondylolisthesis and no dynamic instability. IMPRESSION: 1. Mild lumbar levoscoliosis and minimal right superior pelvic obliquity without significant truncal imbalance. 2. Mild multilevel degenerative disc disease and facet arthropathy. Electronically signed by: Jm Parra D.O. Tracy Vitale WEB DEVELOPMENT MANAGER IMG XR PROCEDURES Final Result * Neuro MR Outside Reference (02/04/2025 10:35 AM CDT) Impressions [facility] - 02/04/2025 10:35 AM CDT These images are for Reference purposes only and have not been reviewed by [facility]. There will be no report generated by a [facility] Radiologist. Narrative [facility] - 02/04/2025 10:35 AM CDT EXAMINATION: Images For Reference Purposes Only Tracy Vitale WEB DEVELOPMENT MANAGER IMG MRI PROCEDURES Final Result [facility] * MR Body Outside Reference (02/04/2025 10:22 AM CDT) Impressions [facility] - 02/04/2025 10:22 AM CDT These images are for Reference purposes only and have not been reviewed by [facility]. There will be no report generated by a [facility] Radiologist. Narrative [facility] - 02/04/2025 10:22 AM CDT EXAMINATION: Images For Reference Purposes Only us Tracy Vitale NP IMG MRI PROCEDURES Final Result Performing Organization Address [facility] Co de Phone Number [email or web address] * Serum Hepatitis panel (12/29/2015 12:07 PM CDT) HBV surface ag Non-Reacti ve Non-Reacti ve HISTORICAL RESULTS HCV ab Non-Reacti ve Non-Reacti ve HISTORICAL RESULTS HBV core ab, IgM Non-Reacti ve Non-Reacti ve HISTORICAL RESULTS HAV ab, IgM Non-Reacti ve Non-Reacti ve HISTORICAL RESULTS Serum 12/29/2015 12:0 7 PM CDT us Jose Rogers MD LAB BLOOD ORDERABLES Leanna l Result Performing Organization Address City/[facility] Co de Phone Number HISTORICAL RESULTS from Last 3 Months or Most Recently Relevant to Health Maintenance Insurance [facility] MEDICARE ADVANTAGE MEDICARE [facility] Address: [address] [address] [place] [address] IDDE [facility] MEDICARE ADVANTAGE Advance Directives For more information, please contact: [phone] * Full Code (Latest Code Status on File) Date Activated Date Inactivated Comments 06/03/2023 10:39 AM 06/17/2023 4:25 PM * Full Code Date Activated Date Inactivated Comments 05/07/2023 2:17 PM 05/08/2023 3:43 PM Healthcare Agents on File Name Relationship Healthcare Agent Relationshi p Communication Jaz Kang Sister Health Care Agent Mike Mirza Friend First Alternate Health Care Agent Care Teams Bed Spring Maker Relationship Specialty Start Date End Date Ted Mccormack PA [address] [facility] [address] [place], [place] [id number] PCP - General Physician Lease Operator 01/30/23 Phong Perrin MD [address] [facility] [address] [place] [address] Referring Physician Gastroenterology 05/14/19 Darron Chavarria MD [phone] [place] [address] Surgeon Colon and Rectal Surgery 07/08/23
--- OUTSIDE RECORDS SUMMARY | 2025-05-06 10:41 | XMS_ITS | Clinical Summary ---
Author Organization [facility] Address [facility] [place] [address] Care Team Providers Care Production Cloth Cutter Name Role Phone Ted Mccormack PA-C Primary Care Provider [phone] Social History Tobacco Use Types Packs/Day Years [...] patient's age to complete this topic Insurance [facility] MEDICAID Care Teams Production Cloth Cutter Relationship Specialty Start Date End Date Ted Mccormack PA-C [address] [place], [place] [id number] PCP - General PHYSICIAN DIRECTOR E LEARNING 05/10/22
--- OUTSIDE RECORDS SUMMARY | 2025-05-06 11:03 | XMS_ITS | Clinical Summary ---
Author Organization [facility] Address [address] [place] [address] Care Team Providers Care Cad Design Engineer Name Role Phone Kveen Murrieta MD Primary Care Provider [phone] Source Comments [facility],non-owned Affiliates and Associated Physician Practices is amultiple site organization consisting of ambulatory clinics and hospital sitesin [place], [place], [place] and [place]. This disclosure is being madepursuant to the Care Everywhere program and may not contain all information available regarding this patient. Last updated 18.[facility] [employer] Allergies Active Allergy Reactions Criticality Noted Date Comments Levofloxacin Diarrhea,Urticaria,N ausea and/or Vomiting,Rash High 11/14/2017 Morphine Psychiatric,Nausea a nd/or Vomiting,Vomiting High 11/14/2017 Medications * Be aware that medications may not be up to date on this document. Alwaysverify current medications with the patient. 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
--- OUTSIDE RECORDS SUMMARY | 2025-05-06 11:04 | XMS_ITS | Clinical Summary ---
Author Organization [facility] Address [address], [address] [address] Phone Care Team Providers Care Loop Machine Operator Name Role Phone Ted Mccormack Primary Care Provider Giles Bishop MD Unavailable [phone] Allergies Active Allergy Reactions Criticality Noted Date [...] prophylaxis. 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 Not on arnel e Last Filed Vital Signs Vital Sign Reading Time Taken Comments Blood Pressure 100/68 09/16/2022 1:15 PM [employer] Pulse 91 09/16/2022 1:15 PM [employer] Temperature 37.4 C (99.3 F) 09/16/2022 1:15 PM [employer] Respiratory Rate 18 09/16/2022 1:15 PM [employer] Oxygen Saturation 98% 09/16/2022 1:15 PM [employer] Inhaled Oxygen Concentration - - Weight 46.7 kg (103 lb) 09/16/2022 1:15 PM [employer] Height 167.6 cm (5' 6) 09/16/2022 1:15 PM [employer] Body Mass Index 16.62 09/16/2022 1:15 PM [employer] Plan of Treatment Health Maintenance Due Date [...] CUTOFF <0.1 0.0 - 0.9 S/CO RATIO [facility] EX[facility] HEPATITIS C VIRUS AB COMMENT [facility]NAL [facility] Comment: NEGATIVE NOT INFECTED WITH HCV, UNLESS RECENT INFECTION IS SUSPECTED OR OTHER EVIDENCE EXISTS TO INDICATE HCV INFECTION. Blood 04/29/2022 9:56 AM CDT N[facility]ative [facility] - 04/30/2022 10:08 AM CDT TESTING PERFORMED AT: [] [address], [address], PHONE: [phone], DOCUMENT CLERK: JOHANA TOPETE, PHD Release to patient->Immediate us Giles Bishop MD CHEMISTRY ORDERABLES Final Result [facility] * HM COLONOSCOPY (03/23/2012) us Keven Murrieta MD PROCEDURE/MINOR SURGICAL O RDERABLES Final Result from Last 3 Months or Most Recently Relevant to Health Maintenance Insurance [place]IC[place] [address] MEDICAID [place] MEDICARE C [employer] Care Teams Loop Machine Operator Relationship Specialty Start Date End Date Ted Mccormack PAC [address] [facility] [address] [place] [address] PCP - General Physician Pairing Machine Operator 05/13/19 Giles Bishop MD [address] [place] [phone] Consulting Physician Oncology 04/11/22
--- OUTSIDE RECORDS SUMMARY | 2025-05-06 11:04 | XMS_ITS | Clinical Summary ---
Author Organization [facility] Address [facility] [place] [address] Care Team Providers Care Compliance Analyst Name Role Phone Ted Mccormack PA-C Primary Care Provider [phone] Social History Tobacco Use Types Packs/Day Years [...] patient's age to complete this topic Insurance [facility] MEDICAID Care Teams Compliance Analyst Relationship Specialty Start Date End Date Ted Mccormack PA-C [address] [facility] [address] [place], [place] [id number] PCP - General PHYSICIAN ART CONSERVATOR 05/10/22
--- OUTSIDE RECORDS SUMMARY | 2025-05-06 11:04 | XMS_ITS | Clinical Summary ---
Author Organization [facility] 2 Address [address] [facility] [place] [address] Care Team Providers Care Radio Mechanic Apprentice Name Role Phone Phong Perrin MD Unavailable Ted Mccormack Primary Care Provider Darron Chavarria MD Unavailable [phone] Allergies Active Allergy Reactions Criticality Noted Date [...] prophylaxis. Patient has been counseled that under [place] guidelines she should remain without driving until [...] filling a 6 month seizure-free interval under [place] guidelines. I will plan on seeing her [...] Description 02/17/2025 12:30 PM CDT [facility] [address] [facility] Advanced Medicine 6th [place] [address] [place] [address] Tracy Vitale, FELI Full incontinence of feces 02/17/2025 12:06 PM CDT - 02/17/2025 11:59 PM CDT Hospital Encounter [facility]) [address] [place] [address] Low back pain, non-specific Discharge Disposition: Discharge to home or self care 02/04/2025 10:35 AM CDT - 02/04/2025 11:59 PM CDT Hospital Encounter [facility] ([facility]) [address] [place] [address] Discharge Disposition: Discharge to home or self care 02/04/2025 10:22 AM CDT - 02/04/2025 11:59 PM CDT Hospital Encounter [facility] ([facility]) [address] [place] [address] Discharge Disposition: Discharge to home or self care 02/04/2025 Orders Only [facility] Medicine Neurosurgery [address] [facility] [address] [place] [address] Tracy Vitale NP Low back pain, non-specific [...] on file Legal Sex Female 4:01 AM TIMBER MANAGEMENT SPECIALIST Gender Identity Not on file Sexual Orientation [...] 37.1 C (98.7 F) 08/15/2023 3:09 PM TIMBER MANAGEMENT SPECIALIST Respiratory Rate 16 08/15/2023 3:09 PM TIMBER MANAGEMENT SPECIALIST Oxygen Saturation 97% 08/15/2023 3:09 PM TIMBER MANAGEMENT SPECIALIST Inhaled Oxygen Concentration - - Weight 43.3 [...] signed by: Jm Parra D.O. Tracy Vitale OIL EXPELLER OPERATOR IMG XR PROCEDURES Final Result * Neuro MR Outside Reference (02/04/2025 10:35 AM CDT) Impressions [facility] - 02/04/2025 10:35 AM CDT These images are for Reference purposes only and have not been reviewed by [facility]. There will be no report generated by a [facility] Radiologist. Narrative [facility] - 02/04/2025 10:35 AM CDT EXAMINATION: Images For Reference Purposes Only Tracy Vitale OIL EXPELLER OPERATOR IMG MRI PROCEDURES Final Result [facility] * MR Body Outside Reference (02/04/2025 10:22 AM CDT) Impressions [facility] - 02/04/2025 10:22 AM CDT These images are for Reference purposes only and have not been reviewed by [facility]. There will be no report generated by a [facility] Radiologist. Narrative [facility] - 02/04/2025 10:22 AM CDT EXAMINATION: Images For Reference Purposes Only us Tracy Vitale NP IMG MRI PROCEDURES Final Result Performing Organization Address [facility] Co de Phone Number [facility] * Serum [...] ORDERABLES Leanna l Result Performing Organization Address City/[facility] Co de Phone Number HISTORICAL RESULTS from Last 3 Months or Most Recently Relevant to Health Maintenance Insurance [facility] MEDICARE ADVANTAGE [facility] MEDICARE Address: [address] [address] [place] [address] MEDICARE [facility] Address: [address] [address] [place] [address] IDNM [facility] MEDICARE ADVANTAGE [facility]ALTH [facility] MEDICARE Address: [facility] [address] [place] [address] Advance Directives For more information, please contact: [phone] * Full Code (Latest Code Status on File) Date Activated Date Inactivated Comments 06/03/2023 10:39 AM 06/17/2023 4:25 PM * Full Code Date Activated Date Inactivated Comments 05/07/2023 2:17 PM 05/08/2023 3:43 PM Healthcare Agents on File Name Relationship Healthcare Agent Relationshi p Communication Jaz Kang Sister Health Care Agent Mike Mirza Friend First Alternate Health Care Agent Care Teams Radio Mechanic Apprentice Relationship Specialty Start Date End Date Ted Mccormack PA [address] [facility] [address] [place], [place] [phone] PCP - General Physician Director Of Strategic Communications 01/30/23 Phong Perrin MD [address] [facility] [address] [place] [address] Referring Physician Gastroenterology 05/14/19 Darron Chavarria MD [phone] [place] [address] Surgeon Colon and Rectal Surgery 07/08/23
--- NOTE | 2025-05-06 11:29 | ED_ITS ---
HPI - General Adult General Chief complaint: Recheck/Abnormal Lab/Rx Stated complaint: rapid called for low BS following lab test Time Seen by Provider: 05/06/25 10:56 History of Present Illness HPI narrative: 59-year-old female presents emergency department for evaluation for intermittent issues with hypoglycemia. Patient was on our facility getting a for fasting blood sugar when she felt that her blood sugar was dropping. It was found to be in the 50s. Patient was symptomatic at that time and was feeling lightheaded dizzy and was having some episodes of diarrhea. A rapid response was called and patient was brought to the emergency department. Patient has been tolerating p.o., drinking orange juice and does feel improved. Patient's blood sugar was improved on the recheck. At time of evaluation patient states she is having some abdominal cramping but denies any other complaints. Related Data Home Medications ?Medication ?Instructions ?Recorded ?Confirmed ?Last Taken ?Type duloxetine 30 mg capsule,delayed 30 mg PO HS 01/15/23 05/03/25 Unknown History release propranolol 10 mg tablet 30 mg PO BID 12/29/24 Unknown History Allergies Allergy/AdvReac Type Severity Reaction Status Date / Time morphine Allergy Intermediate Itching Verified 05/03/25 13:28 and encephalopathy Sulfa (Sulfonamide Allergy Vomiting Verified 05/03/25 13:28 Antibiotics) levofloxacin AdvReac Mild Diarrhea Verified 05/03/25 13:28 Review of Systems 2 Review of Systems: All systems reviewed & are unremarkable except as noted in HPI and below PMFSH Past Medical History Medical History (Updated 05/06/25 @ 14:06 by Salty Booker MD) Body mass index (BMI) less than 20 Underweight (03/09/19) Neuropathy Cough Bronchitis Weight loss Vitamin D deficiency, unspecified UTI (urinary tract infection), uncomplicated Stress reaction Solitary pulmonary nodule Seronegative rheumatoid arthritis Right hand pain Right elbow tendinitis Primary generalized (osteo)arthritis Pain, unspecified Pain in unspecified elbow Major depressive disorder, single episode, unspecified Lower urinary tract symptoms (LUTS) Low back pain Lateral epicondylitis of right elbow Irritable bowel syndrome with diarrhea Generalized abdominal pain General medical examination Gastro-esophageal reflux disease without esophagitis Flu Essential (primary) hypertension Encounter for smoking cessation counseling Elevated liver enzymes Elbow pain, right Dysuria Dizziness Anxiety and depression Acute respiratory infection Colovesical fistula Vesicovaginal fistula Abnormal weight loss Biliary tract imaging abnormality Ovarian mass, left Stricture of sigmoid colon Rectal pain Anxiety Depression Liver disease Fibromyalgia UTI (urinary tract infection) GERD (gastroesophageal reflux disease) HTN (hypertension) Epilepsy Bronchitis Cataracts, bilateral Diverticulitis Pancreatitis Surgical History Surgical History Hx of rotator cuff surgery lt shoulder Hx of section History of hysterectomy Hx of cholecystectomy History of intestinal surgery She reports cholecystecomy in 2001 and her bile ducts were nicked - her recovery was complicated by 3 months inpatient at [facility] for bile leak. She believes she also had colon resected and reanastomosed at that time - no ostomy. Family History Family History (Updated 01/24/25 @ 12:55 by EMIR Chavez) Mother Family history of thyroid disease Hypertension Family history of malignant neoplasm of gastrointestinal tract Father Malignant neoplasm of prostate Family history of diabetes mellitus in first degree relative Acute myocardial infarction Diabetes mellitus Sibling Lupus Sibling No problems noted. Other Family history of arthritis Family history of gout Family history of heart disease in male family member before age 55 Family history of lung disease Family history of seizure disorder Social History Social History (Updated 01/24/25 @ 12:56 by EMIR Chavez) Smoking packs per day: 0.5 Smoking cigarettes per day: 10.0 Years smoked: 7 Smoking pack-years: 3.50 Smoking status: Current every day smoker Tobacco type: cigarettes Second hand tobacco smoke exposure: Yes Alcohol intake: never Substance use: never Substance use type: does not use Do You Feel Safe in your Home?: Yes Lack of Transportation: No Lack of Food: Sometimes True Current Housing: I Do Not Have Housing Concerned About Future Housing: No Difficulty Paying Gas/Electric Bills: YES Difficulty Paying for Meds: No Currently Unemployed: No Education: Decline to Answer Difficulty w/ Childcare or Family Care: No Living arrangements: with family Additional living arrangements comments: BOYFRIEND Occupation/Education: unemployed Gender identity (if verbalized by the patient): Female Spiritual care concerns: No Agree to blood products: Yes Exam 2 Narrative: APPEARANCE: Well appearing, no pain, no distress, well-nourished. HEAD: normocephalic, atraumatic. EYES: PERRLA/EOMI, conjunctivae clear. NOSE: Normal no drainage EARS:TMS clear with good light reflex. THROAT: Pharynx clear, no exudate. NECK: Supple. No adenopathy, no masses. RESPIRATORY: Airway patent, respirations nonlabored. Clear to auscultation bilaterally, no rales, rhonchi, wheezing. CARDIOVASCULAR: Regular rate and rhythm without murmurs rubs or gallops. ABDOMINAL: Soft, nontender, nondistended, normal bowel sounds MUSCULOSKELETAL: Moves all extremities. Strength/ROM intact, No edema, No calf tenderness. NEURO: Alert. Cranial nerves II through XII intact. Good gait. Good coordination SKIN: Warm, dry. Normal Color Course Vital Signs Vital signs: Vital Signs Temperature 97.6 F 05/06/25 10:44 Pulse Rate 65 05/06/25 10:44 Respiratory Rate 18 05/06/25 10:44 Blood Pressure 123/83 05/06/25 10:44 Pulse Oximetry 100 05/06/25 10:44 Oxygen Delivery Room Air 05/06/25 10:44 Temperature 97.8 F 05/06/25 10:58 Pulse Rate 67 05/06/25 13:30 Respiratory Rate 15 05/06/25 13:30 Blood Pressure 155/80 H 05/06/25 11:17 Pulse Oximetry 100 05/06/25 11:17 Oxygen Delivery Room Air 05/06/25 11:10 Medical Decision Making MDM Narrative Medical decision making narrative: 59-year-old female present to the emergency department for evaluation for intermittent hypoglycemia. Patient is being worked up by her primary care physician for this. Patient was having a fasting glucose side today her blood sugar did go down into the 40s. Patient has since been eating and drinking and patient's blood sugars have been better. Patient is requesting discharge home. Patient was encouraged of close follow-up with her primary care physician Differential Diagnosis Differential Diagnosis: Hypoglycemia, dehydration, malnutrition Vital Signs Vital Signs: Vital Signs Temperature 97.6 F 05/06/25 10:44 Pulse Rate 65 05/06/25 10:44 Respiratory Rate 18 05/06/25 10:44 Blood Pressure 123/83 05/06/25 10:44 Pulse Oximetry 100 05/06/25 10:44 Oxygen Delivery Room Air 05/06/25 10:44 Temperature 97.8 F 05/06/25 10:58 Pulse Rate 67 05/06/25 13:30 Respiratory Rate 15 05/06/25 13:30 Blood Pressure 155/80 H 05/06/25 11:17 Pulse Oximetry 100 05/06/25 11:17 Oxygen Delivery Room Air 05/06/25 11:10 Lab Data Lab results reviewed: Yes I reviewed the patient's lab results. 05/06/25 12:29 05/06/25 12:29 Labs: Lab Results 05/06/25 05/06/25 05/06/25 Range/Units 11:09 12: 13:36 WBC 7.9 (4.5-10.0) K/mm3 RBC 4.27 (4.2-5.4) M/mm3 Hgb 13.8 (12.0-15.0) g/dL Hct 42.0 (37.0-47.0) % MCV 98.4 (80-100) fl MCH 32.3 (26-34) pg MCHC 32.9 (32-36) g/dl RDW 12.5 (11.5-14.5) % Plt Count 130 L (150-375) k/mm3 MPV 12.8 H (7.4-10.4) fl Immature Gran % (Auto) 0.4 (0-0.5) % Neut % (Auto) 74.8 H (45.5-73.1) % Lymph % (Auto) 16.7 L (18.3-44.2) % O'Brien % (Auto) 7.0 (2.6-8.5) % Eos % (Auto) 0.6 (0-4.4) % Baso % (Auto) 0.5 (0.2-1.2) % Lymph # (Auto) 1.32 (0.9-3.2) K/mm3 O'Brien # (Auto) 0.6 (0.1-0.6) K/mm3 Eos # (Auto) 0.1 (0-0.3) K/mm3 Baso # (Auto) 0.0 (0.0-0.1) K/mm3 Abs Immat Gran (auto) 0.03 (0.00-0.031) K/mm3 Absolute Neuts (auto) 5.9 (1.3-6.7) K/mm3 Absolute Nucleated RBC 0.000 (0.0-0.012) K/mm3 Nucleated RBC % 0.0 (0.0-0.2) % % Immature Plt Fraction 15.9 H (0.9-11.2) % Sodium 140 (137-145) mmol/L Potassium 3.7 (3.4-5.0) mmol/L Chloride 105 (98-107) mmol/L Carbon Dioxide 30 (22-30) mmol/L Anion Gap 5 (4-12) mmol/L BUN 17 (7-17) mg/dL Creatinine 0.76 (0.7-1.0) mg/dL Estim Creat Clear Calc 48 ml/min Estimated GFR > 60 (59 - ) Glucose 51 L* (65-110) mg/dL POC Capillary Glucose 66 77 (65-105) mg/dl Calcium 8.9 (8.4-10.2) mg/dL Total Bilirubin 0.4 (0.2-1.3) mg/dL AST 38 H (14-36) U/L ALT 25 (6-35) U/L Alkaline Phosphatase 76 (38-126) U/L Total Protein 7.4 (6.3-8.2) g/dL Albumin 4.3 (3.5-5.1) g/dL Discharge Plan Discharge Clinical Impression: Hypoglycemia Patient Disposition: Home Condition: Stable Instructions: Antibiotic Form, Non-diabetic Hypoglycemia (ED) Additional Instructions: Continue to eat a well-balanced diet have close follow-up with your primary care physician for additional outpatient testing. If you have any worsening symptoms please call or return to the emergency department Patient Language: Bangladeshi Prescriptions: No Action propranolol 10 mg tablet 30 mg PO BID tramadol 50 mg tablet 50 mg PO Q8H PRN (Reason: pain) Qty: 30 1RF (DME) blood-glucose meter [Accu-Chek Guide Glucose Meter] Misc See Rx Instructions .Route Qty: 1 1RF Rx Instructions: As directed (DME) Accu-Chek Guide test strips Strip See Rx Instructions .Route Qty: 50 1RF Rx Instructions: As directed; check with hypoglycemia (DME) lancets [Accu-Chek Softclix Lancets] Misc See Rx Instructions .Route Qty: 100 1RF Rx Instructions: As directed with episodes of hypoglycemia duloxetine 30 mg capsule,delayed release(DR/EC) 30 mg PO HS Follow-up/Referrals: Jose Whyte DO [Primary Care Provider, Internal Medicine]
[2025-05-06] MEDS: LACTATED RINGERS 1,000 ML 999 ML IV CONT (12:30)
[2025-05-06 12:55] LABS: Hematocrit 42.0 % (37.0-47.0); Hemoglobin 13.8 g/dL (12.0-15.0); Immature Granulocyte Percent A 0.4 % (0-0.5); Immature Platelet Fraction Pct 15.9 % (0.9-11.2); Lymphocytes Absolute Auto 1.32 K/mm3 (0.9-3.2); Mean Corpuscular HGB Conc 32.9 g/dl (32-36); Mean Corpuscular Hemoglobin 32.3 pg (26-34); Mean Corpuscular Volume 98.4 fl (80-100); Nucleated Red Blood Cells Absolute Auto 0.000 K/mm3 (0.0-0.012); Nucleated Red Blood Cells Perc 0.0 % (0.0-0.2); Platelet Count Result 130 k/mm3 (150-375); Red Blood Count 4.27 M/mm3 (4.2-5.4); White Blood Count 7.9 K/mm3 (4.5-10.0)
[2025-05-06 13:03] LABS: Alanine Aminotransferase 25 U/L (6-35); Albumin Level 4.3 g/dL (3.5-5.1); Alkaline Phosphatase 76 U/L (38-126); Anion Gap 5 mmol/L (4-12); Aspartate Amino Transferase 38 U/L (14-36); Bilirubin,Total 0.4 mg/dL (0.2-1.3); Blood Urea Nitrogen 17 mg/dL (7-17); Calcium 8.9 mg/dL (8.4-10.2); Carbon Dioxide 30 mmol/L (22-30); Chloride 105 mmol/L (98-107); Estimated CRCL calculation 48 ml/min; Estimated Glomerular Filt Rate > 60; Glucose 51 mg/dL (65-110); Potassium 3.7 mmol/L (3.4-5.0); Sodium 140 mmol/L (137-145); Total Protein 7.4 g/dL (6.3-8.2)
== END 2025-05-06 14:17 | disposition home or self-care (01) ==
PROVIDERS: Emergency Provider Emergency Medicine; PCP Internal Medicine
DX: E16.2 Hypoglycemia, unspecified (principal); G40.909 Epilepsy, unspecified, not intractable, without status epilepticus; I10 Essential (primary) hypertension; E55.9 Vitamin D deficiency, unspecified; G62.9 Polyneuropathy, unspecified; K58.0 Irritable bowel syndrome with diarrhea; K21.9 Gastro-esophageal reflux disease without esophagitis; K76.9 Liver disease, unspecified; M79.7 Fibromyalgia; M06.00 Rheumatoid arthritis without rheumatoid factor, unspecified site; M19.90 Unspecified osteoarthritis, unspecified site; F41.9 Anxiety disorder, unspecified; F32.9 Major depressive disorder, single episode, unspecified; F17.210 Nicotine dependence, cigarettes, uncomplicated; Z87.440 Personal history of urinary (tract) infections; Z90.49 Acquired absence of other specified parts of digestive tract; Z90.710 Acquired absence of both cervix and uterus; Z79.899 Other long term (current) drug therapy
CPT/HCPCS: 36415; 80053; 82948; 82951; 82952; 84443; 85025; 85055; 96360; 99283; J7120

== ENCOUNTER 2025-05-24 14:31 | Outpatient (CLI) | payer MEDICARE, MEDICAID, SELFPAY ==
--- NOTE | ~2025-05-24 | MR_ITS ---
EXAMINATION: MR brain/brain stem wo con DATE: 05/24/2025 15:08 INDICATION: Epilepsy, unspecified, not intractable. TECHNIQUE: Magnetic resonance imaging (MRI) of the brain and brainstem was performed without intravenous contrast. COMPARISON: None. FINDINGS: There is no intracranial hemorrhage, acute infarction, or abnormal intracranial mass lesion. The ventricles are normal in size. The paranasal sinuses are clear. The orbits are normal. The mastoid air cells are normal. IMPRESSION: 1. Normal brain. Reviewed, dictated and finalized at location E. IMPRESSION: 1. Normal brain.
== END 2025-05-24 14:32 | disposition home or self-care (01) ==
LOC: MICIMG 14:32
PROVIDERS: PCP Internal Medicine; Visit Provider Internal Medicine
DX: G40.909 Epilepsy, unspecified, not intractable, without status epilepticus (principal)
CPT/HCPCS: 70551